=== PATIENT | male | born 1935 | race Caucasian/White ===

== ENCOUNTER 2016-11-24 06:03 | Observation (INO) | payer MEDICARE, BC ==
[2016-11-24] VITALS (9 sets, daily range): BP systolic 107–154; BP diastolic 47–65; PULSE 60–66; RESP 17–20; TEMP 97.6–98.2; O2SAT 93–98
[~2016-11-24] VITALS: Ht 170.2 cm; Wt 100.0 kg
[~2016-11-24 06:03] MED LIST: CHOL1CAP2 PO; ECOT81TA2 PO; EZET10 PO; FURO1TAB93 PO; GABA300 PO; GLUCTAB PO; KCL10 PO; LISI20 PO; LORTA5 PO; METO50TA PO; NITR.4; RANO500 PO; ROSU40 PO; STAR60TA PO
[2016-11-24] MEDS ORDERED: CLOP75TA PO (06:25)
[2016-11-24] MEDS ORDERED: ISOS30TA3 PO (06:25)
[2016-11-24] MEDS ORDERED: NITR1SUB3 SL (06:25)
[2016-11-24] MEDS ORDERED: ASPI1TAB69 PO (06:25)
[2016-11-24] MEDS ORDERED: GABA300C5 PO (06:25)
[2016-11-24] MEDS ORDERED: POTA10TA2 PO (06:25)
[2016-11-24] MEDS ORDERED: METF850T PO (06:25)
[2016-11-24] MEDS ORDERED: TRAZ50TA12 PO (06:25)
[2016-11-24] MEDS ORDERED: METO50TA PO (06:25)
[2016-11-24] MEDS ORDERED: MULT-120 PO (06:25)
[2016-11-24] MEDS ORDERED: FURO40TA PO (06:25)
[2016-11-24] MEDS ORDERED: ATOR40TA16 PO (06:25)
[2016-11-24] MEDS ORDERED: LISI-515 PO (06:25)
[2016-11-24] MEDS ORDERED: NATE120T PO (06:25)
[2016-11-24] MEDS ORDERED: ZETI10TA5 PO (06:25)
[2016-11-24] MEDS ORDERED: SODIUM CHLOR 0.9% 1000 ML INJ 1,000 ML IV ONE (07:01)
--- NOTE | 2016-11-24 07:07 | PD ---
HPI Chief Complaint: Syncope/Near-Syncope Time Seen by Provider: 06:54 Travel History International Travel<30 days: No Contact w/Intl Traveler<30days: No Traveled to known affect area: No History of Present Illness HPI The patient is a 80-year-old male who presents to the emergency Department after syncopal episode. The patient notes a three-day history of diarrhea which she describes as loose, watery, with intermittent abdominal pain. The patient states he was sitting on a toilet when he had a syncopal episode. The patient states he had no symptoms prior to syncope, denied any chest pain, shortness breath, nausea, vomiting, diaphoresis, or dizziness prior to the syncopal episode. The patient states he apparently passed out and awakened on the floor. The patient was noted to have a laceration to the bridge of the nose as well as a laceration to the right forehead. Patient currently complains of intermittent abdominal cramping. 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 Patient states his primary physician is Dr. Carrero. The patient denies any history of previous syncope. Symptoms are moderate, possibly exacerbated by recent diarrhea and using the bathroom, apparently self alleviating. PFSH Past Medical History Anxiety: No Depression: No Heart Rhythm Problems: Yes (PALPITATIONS ) Cancer: No Cardiac Catheterization: Yes (06/2015) Cardiovascular Problems: Yes (nstemi) High Cholesterol: Yes Chest Pain: Yes Congestive Heart Failure: No Diabetes: Yes Patient Takes Glucophage: Yes Endocrine: Yes Gastrointestinal Disorders: Yes Glaucoma: No Genitourinary: No Hepatitis: No Hiatal Hernia: No Hypertension: Yes Immune Disorder: No Implanted Vascular Access Dvce: Yes Musculoskeletal: Yes (BACK/ NECK ISSUES, ARTHTITIS, L KNEE REPLACEMENT ) Neurologic: Yes (NEUROPATHY FINGERS/ FEET, STROKE) Psychiatric: No Reproductive: No Respiratory: Yes (COPD) Immunizations Current: Yes Sleep Apnea: Yes Thyroid Disease: No Tetanus Vaccination: Unknown Influenza Vaccination: Yes Past Surgical History Abdominal Surgery: Yes (UMBILICAL HERNIA REPAIR 20 YRS AGO) AICD: No Body Medical Devices: STERNAL WIRES Cardiac Surgery: Yes (CABG X3) Ear Surgery: No Endocrine Surgery: No Eye Surgery: Yes (GURDEEP. CATARACT EXTRACT.) Genitourinary Surgery: No Gynecologic Surgery: No Joint Replacement: Yes (LTK ) Neurologic Surgery: No Oral Surgery: Yes (TONSILLECTOMY) Pacemaker: No Thoracic Surgery: Yes Other Surgery: Yes Social History Alcohol Use: Yes (couple beers ) Tobacco Use: No (STOPPED 1972) Substance Use: No Allergies-Medications (Allergen,Severity, Reaction): Coded Allergies: Heparin (Verified Allergy, Severe, LOST BLOOD CELL NEARLY , 11/24/16) Versed (Verified Allergy, Intermediate, UNKNOWN, 11/24/16) Reported Meds & Prescriptions Reported Meds & Active Scripts Active Reported Zetia (Ezetimibe) 10 Mg Tab 10 Mg PO DAILY Trazodone (Trazodone HCl) 50 Mg Tab 50 Mg PO HS Potassium Chloride ER (Potassium Chloride) 10 Meq Tab 10 Meq PO DAILY Nitroglycerin SL (Nitroglycerin) 0.4 Mg Subl 0.4 Mg SL DIRECTED PRN ONE TABLET UNDER THE TONGUE NEEDED FOR CHEST PAIN, MAY REPEAT EVERY FIVE MINUTES FOR A TOTAL OF 3 DOSES OR CALL 911 IF NO RELIEF Nateglinide 120 Mg Tab 120 Mg PO TIDAC Metoprolol Tartrate 50 Mg Tab 50 Mg PO BID Metformin (Metformin HCl) 850 Mg Tab 850 Mg PO BIDPC With meals Lisinopril 20 Mg Tab 20 Mg PO DAILY Isosorbide Mononitrate ER (Isosorbide Mononitrate) 30 Mg René 30 Mg PO DAILY Gabapentin 300 Mg Cap 300 Mg PO BID Furosemide 40 Mg Tab 40 Mg PO DAILY Clopidogrel (Clopidogrel Bisulfate) 75 Mg Tab 75 Mg PO DAILY Atorvastatin (Atorvastatin Calcium) 40 Mg Tab 40 Mg PO HS Aspirin 81 Mg Tabdr 81 Mg PO DAILY Multivitamin Women (Multiple Vitamins W/ Minerals) 1 Tab Tab 1 Tab PO DAILY Review of Systems Except as stated in HPI: all other systems reviewed are Neg Eyes: No: Blurred Vision HENT: Positive: Headaches, No: Neck Pain Cardiovascular: Positive: Syncope, No: Chest Pain or Discomfort, Palpitations , Irregular Rhythm, Diaphoresis Respiratory: No: Shortness of Breath Gastrointestinal: Positive: Diarrhea, Abdominal Pain, No: Nausea, Vomiting Musculoskeletal: No: Weakness Neurologic: Positive: Syncope, Headache, No: Dizziness Physical Exam Narrative GENERAL: Awake, alert, pleasant 80-year-old male appears his stated age and is in no acute respiratory distress. SKIN: Warm and dry. HEAD: Patient is a 6 and a laceration to right frontal forehead. Patient also has a superficial laceration to the bridge of the nose. Edema noted over the nasal bridge as well as ecchymosis under the right orbit.. EYES: Pupils equal and round. Pupils are 2 mm bilateral reactive. EOMs are intact. ENT: Superficial laceration of the bridge of nose. No visible septal hematoma. Oropharynx reveals no visible blood in the posterior oropharynx. NECK: Trachea midline. No JVD. No tenderness of the cervical vertebrae. CARDIOVASCULAR: Regular rate and rhythm. No murmur appreciated. Well-healed midline surgical scar. RESPIRATORY: No accessory muscle use. Clear to auscultation. Breath sounds equal bilaterally. GASTROINTESTINAL: Abdomen soft, mild periumbilical tenderness. MUSCULOSKELETAL: Chronic venous stasis changes lower extremities. NEUROLOGICAL: Awake and alert. No obvious cranial nerve deficits. Motor grossly within normal limits. Normal speech. Oriented to person, place, and year. PSYCHIATRIC: Appropriate mood and affect; insight and judgment normal. Data Data Last Documented VS Vital Signs Date Time Temp Pulse Resp B/P Pulse Ox O2 Delivery O2 Flow Rate FiO2 11/24/16 08:30 66 17 130/64 97 Room Air 11/24/16 06:09 97.6 Orders Electrocardiogram (11/24/16 07:01) Complete Blood Count With Diff (11/24/16 07:01) Comprehensive Metabolic Panel (11/24/16 07:01) Magnesium (Mg) (11/24/16 07:01) Ckmb (Isoenzyme) Profile (11/24/16 07:01) Troponin I (11/24/16 07:01) Chest, Single Ap (11/24/16 07:01) Ct Brain W/O Iv Contrast(Rout) (11/24/16 07:01) Ecg Monitoring (11/24/16 07:01) Iv Access Insert/Monitor (11/24/16 07:01) Oximetry (11/24/16 07:01) Sodium Chloride 0.9% Flush (Ns Flush) (11/24/16 07:15) Sodium Chlor 0.9% 1000 Ml Inj (Ns 1000 M (11/24/16 07:01) Orthostatic Vital Signs (11/24/16 07:01) Ct Facial Bones W/O Iv Cont (11/24/16 ) Ct Abd/Pel W/O Iv Contrast (11/24/16 ) Tetanus/Diphtheria Tox Adult (Tetanus/Di (11/24/16 07:15) C Diff Toxin Pcr (11/24/16 08:07) Metronidazole 500 Mg Inj (Flagyl 500 Mg (11/24/16 08:15) Lidocai-Epi 1%-1:100,000 Inj (Xylocaine- (11/24/16 08:30) Admit Order (Ed Use Only) (11/24/16 08:30) Labs Laboratory Tests Test 11/24/16 07:00 White Blood Count 13.1 TH/MM3 Red Blood Count 4.36 MIL/MM3 Hemoglobin 13.0 GM/DL Hematocrit 39.0 % Mean Corpuscular Volume 89.6 FL Mean Corpuscular Hemoglobin 29.8 PG Mean Corpuscular Hemoglobin 33.2 % Concent Red Cell Distribution Width 15.4 % Platelet Count 215 TH/MM3 Mean Platelet Volume 9.9 FL Neutrophils (%) (Auto) 80.2 % Lymphocytes (%) (Auto) 10.0 % Monocytes (%) (Auto) 5.7 % Eosinophils (%) (Auto) 3.7 % Basophils (%) (Auto) 0.4 % Neutrophils # (Auto) 10.5 TH/MM3 Lymphocytes # (Auto) 1.3 TH/MM3 Monocytes # (Auto) 0.8 TH/MM3 Eosinophils # (Auto) 0.5 TH/MM3 Basophils # (Auto) 0.1 TH/MM3 CBC Comment DIFF FINAL Differential Comment Sodium Level 137 MEQ/L Potassium Level 5.1 MEQ/L Chloride Level 105 MEQ/L Carbon Dioxide Level 19.7 MEQ/L Anion Gap 12 MEQ/L Blood Urea Nitrogen 28 MG/DL Creatinine 1.48 MG/DL Estimat Glomerular Filtration 46 ML/MIN Rate Random Glucose 201 MG/DL Calcium Level 9.3 MG/DL Magnesium Level 1.5 MG/DL Total Bilirubin 0.4 MG/DL Aspartate Amino Transf 20 U/L (AST/SGOT) Alanine Aminotransferase 18 U/L (ALT/SGPT) Alkaline Phosphatase 92 U/L Total Creatine Kinase 83 U/L Troponin I LESS THAN 0.02 NG/ML Total Protein 8.0 GM/DL Albumin 3.5 GM/DL MDM Medical Decision Making Medical Screen Exam Complete: Yes Emergency Medical Condition: Yes Medical Record Reviewed: Yes Interpretation(s) EKG reveals normal sinus rhythm with a rate of 65. Q waves noted in lead 3 and aVF. Inverted T waves noted in lead 1 and aVL. Laboratory Tests Test 11/24/16 07:00 White Blood Count 13.1 TH/MM3 Red Blood Count 4.36 MIL/MM3 Hemoglobin 13.0 GM/DL Hematocrit 39.0 % Mean Corpuscular Volume 89.6 FL Mean Corpuscular Hemoglobin 29.8 PG Mean Corpuscular Hemoglobin 33.2 % Concent Red Cell Distribution Width 15.4 % Platelet Count 215 TH/MM3 Mean Platelet Volume 9.9 FL Neutrophils (%) (Auto) 80.2 % Lymphocytes (%) (Auto) 10.0 % Monocytes (%) (Auto) 5.7 % Eosinophils (%) (Auto) 3.7 % Basophils (%) (Auto) 0.4 % Neutrophils # (Auto) 10.5 TH/MM3 Lymphocytes # (Auto) 1.3 TH/MM3 Monocytes # (Auto) 0.8 TH/MM3 Eosinophils # (Auto) 0.5 TH/MM3 Basophils # (Auto) 0.1 TH/MM3 CBC Comment DIFF FINAL Differential Comment Sodium Level 137 MEQ/L Potassium Level 5.1 MEQ/L Chloride Level 105 MEQ/L Carbon Dioxide Level 19.7 MEQ/L Anion Gap 12 MEQ/L Blood Urea Nitrogen 28 MG/DL Creatinine 1.48 MG/DL Estimat Glomerular Filtration 46 ML/MIN Rate Random Glucose 201 MG/DL Calcium Level 9.3 MG/DL Magnesium Level 1.5 MG/DL Total Bilirubin 0.4 MG/DL Aspartate Amino Transf 20 U/L (AST/SGOT) Alanine Aminotransferase 18 U/L (ALT/SGPT) Alkaline Phosphatase 92 U/L Total Creatine Kinase 83 U/L Troponin I LESS THAN 0.02 NG/ML Total Protein 8.0 GM/DL Albumin 3.5 GM/DL Last Impressions Head CT 11/24/16700 Signed Impressions: Service Date/Time: Thursday, November 24, 2016 07:32 - CONCLUSION: Remote bilateral thalamic infarcts. Cerebral atrophy and chronic ischemic small vessel vasculopathy. Right frontal laceration. Taurus Sandy MD Chest X-Ray 11/24/16700 Signed Impressions: Service Date/Time: Thursday, November 24, 2016 07:13 - CONCLUSION: Cardiomegaly previous CABG. Taruus Sandy MD Maxillofacial CT 11/24/16 0000 Signed Impressions: Service Date/Time: Thursday, November 24, 2016 07:32 - CONCLUSION: 1. Minimal fracture of the right nasal bone. 2. Periorbital and right facial swelling. Taurus Sandy MD Abdomen/Pelvis CT 11/24/16 0000 Signed Impressions: Service Date/Time: Thursday, November 24, 2016 07:37 - CONCLUSION: 1. Diverticulosis without diverticulitis. 2. Wall thickening versus nondistention of the mid transverse colon. No inflammatory changes. 3. Subcentimeter hepatic low densities, likely benign. Taurus Sandy MD Differential Diagnosis Differential diagnosis includes syncope, arrhythmia, vasovagal syncope, dehydration, colitis, infectious diarrhea, inflammatory diarrhea, leg slight abnormality, aortic stenosis, cranial hemorrhage, facial fracture. Narrative Course IV was established, labs are drawn and sent, and the patient was placed on cardiac telemetry monitoring and continuous pulse oximetry monitoring. EKG was ordered and interpreted. Orthostatic vital signs were obtained. CT the brain, facial bones, and abdomen/pelvis were ordered. The patient was placed on IV fluids. EKG revealed Q waves in lead 3 and aVF, inverted T waves in [address] the brain was negative, CT facial bones reveals nasal fracture, CT the abdomen and pelvis reveals possible bowel wall thickening of the transverse colon versus nondistention. Therefore, C. difficile PCR toxin was ordered and the patient was administered Flagyl 500 mg intravenously. The patient had a syncopal episode, may be vasovagal secondary to diarrhea versus arrhythmia. Patient will need judicious IV hydration, Flagyl, and possible echocardiogram. The patient's primary physician is Dr. Preston Harris, therefore, [facility] were paged for 23 hour observation. Physician Communication Physician Communication [facility] were paged for 23 hour observation. I discussed the patient with Dr. Hanson who agrees with 23 hour observation. Diagnosis Primary Impression: Syncope Qualified Code: R55 - Syncope, unspecified syncope type Additional Impressions: Diarrhea Qualified Code: R19.7 - Diarrhea, unspecified type Colitis Admitting Information Admitting Physician Requests: Observation Condition: Stable Kofi Dong MD Nov 24, 2016 07:07 Condition: Stable Kofi Dong MD Nov 24, 2016 07:07
[2016-11-24] MEDS ORDERED: TETANUS/DIPHTHERIA TOXOID ADULT 0.5 ML VIAL IM ONE (07:15)
[2016-11-24] MEDS ORDERED: SODIUM CHLORIDE 0.9% FLUSH 5 ML FLUSH IVF PRN (07:15)
[2016-11-24 07:19] LABS: AUTOMATED NEUTROPHIL # 10.5 TH/MM3 (1.8-7.7); BASOPHIL # 0.1 TH/MM3 (0-0.2); BASOPHIL % 0.4 % (0.0-2.0); EOSINOPHIL # 0.5 TH/MM3 (0-0.4); EOSINOPHIL % 3.7 % (0.0-4.0); HEMO FLAGS DIFF FINAL; LYMPHOCYTE # 1.3 TH/MM3 (1.0-4.8); MEAN CELL VOLUME 89.6 FL (80.0-100.0); MEAN CORPUSCULAR HEMOGLOBIN 29.8 PG (27.0-34.0); MEAN CORPUSCULAR HGB CONC 33.2 % (32.0-36.0); MONO % 5.7 % (0.0-8.0); NEUT % 80.2 % (16.0-70.0); PLATELET COUNT 215 TH/MM3 (150-450); RED BLOOD COUNT 4.36 MIL/MM3 (4.50-5.90); RED CELL DISTRIBUTION WIDTH 15.4 % (11.6-17.2); WHITE BLOOD COUNT 13.1 TH/MM3 (4.0-11.0)
--- NOTE | 2016-11-24 07:24 | RADRPT ---
EXAM DATE/TIME: 11/24/2016 07:13 [facility] COMPARISON: CHEST SINGLE AP, July 13, 2015, 14:10. INDICATIONS : Fall from seated position. MEDICAL HISTORY : None. SURGICAL HISTORY : CABG. ENCOUNTER: Initial ACUITY: 1 day PAIN SCORE: 5/10 LOCATION: head. FINDINGS: A single view of the chest demonstrates cardiomegaly and previous CABG. The cardiomediastinal contour s are unremarkable. Osseous structures are intact. CONCLUSION: Cardiomegaly previous CABG. Taurus Sandy MD on November 24, 2016 at 7:22 Board Certified Radiologist. This report was verified electronically.
--- NOTE | 2016-11-24 07:42 | RADRPT ---
EXAM DATE/TIME: 11/24/2016 07:32 [facility] COMPARISON: CT BRAIN W/O CONTRAST, June 10, 2015, 23:21. INDICATIONS : Syncopal episode with fall, right forehead laceration. RADIATION DOSE: 54.40 CTDIvol (mGy) MEDICAL HISTORY : Cardiovascular disease. Chronic obstructive pulmonary disease. Diabetes mellitus type 2. SURGICAL HISTORY : CABG Umbilical hernia repair. ENCOUNTER: Initial ACUITY: 1 day PAIN SCALE: 6/10 LOCATION: Right frontal TECHNIQUE: Multiple contiguous axial images were obtained of the head. Using automated exposure control and adj ustment of the mA and/or kV according to patient size, radiation dose was kept as low as reasonably a chievable to obtain optimal diagnostic quality images. FINDINGS: CEREBRUM: Cerebral atrophy and scattered areas of low-attenuation throughout the white matter. Old bilateral ba evelyn ganglia/thalamic infarcts. Basal ganglia calcifications. The ventricles are normal for age. No e vidence of midline shift, mass lesion, hemorrhage or acute infarction. No extra-axial fluid collecti ons are seen. POSTERIOR FOSSA: The cerebellum and brainstem are intact. The 4th ventricle is midline. The cerebellopontine angle i s unremarkable. EXTRACRANIAL: The visualized portion of the orbits is intact. Right frontal soft tissue laceration. SKULL: The calvaria is intact. No evidence of skull fracture. CONCLUSION: Remote bilateral thalamic infarcts. Cerebral atrophy and chronic ischemic small vessel vasculopathy. Right frontal laceration. Taurus Sandy MD on November 24, 2016 at 7:38 Board Certified Radiologist. This report was verified electronically.
[2016-11-24 07:47] LABS: ALKALINE PHOSPHATASE 92 U/L (45-117); ALT (GPT) 18 U/L (12-78); ANION GAP 12 MEQ/L (5-15); AST (GOT) 20 U/L (15-37); BICARBONATE 19.7 MEQ/L (21.0-32.0); BLOOD UREA NITROGEN 28 MG/DL (7-18); CHLORIDE 105 MEQ/L (98-107); GLOMERULAR FILTRATION RATE 46 ML/MIN (>89); MAGNESIUM 1.5 MG/DL (1.5-2.5); SODIUM (NA) 137 MEQ/L (136-145); TOTAL BILIRUBIN ADULT 0.4 MG/DL (0.2-1.0)
[2016-11-24 07:48] LABS: CREATINE KINASE 83 U/L (39-308); POTASSIUM 5.1 MEQ/L (3.5-5.1)
--- NOTE | 2016-11-24 07:53 | RADRPT ---
EXAM DATE/TIME: 11/24/2016 07:32 [facility] COMPARISON: No previous studies available for comparison. INDICATIONS : Fall, right forehead and nose lacerations. RADIATION DOSE: 64.36 CTDIvol (mGy) MEDICAL HISTORY : Cardiovascular disease. Chronic obstructive pulmonary disease. Diabetes mellitus type 2. SURGICAL HISTORY : CABG Umbilical hernia repair. ENCOUNTER: Initial ACUITY: 1 day PAIN SCORE: 6/10 LOCATION: Right facial TECHNIQUE: Volumetric scanning of the facial bones was performed. Using automated exposure control and adjustme nt of the mA and/or kV according to patient size, radiation dose was kept as low as reasonably achiev able to obtain optimal diagnostic quality images. FINDINGS: ORBITS: The orbital and infraorbital osseous structures are intact. The retroconal structures have a normal configuration. No radiopaque foreign bodies are seen. NASAL BONE: Minimal fracture right nasal bone ZYGOMATIC ARCHES: Symmetric without evidence of fracture. SINUSES: The maxillary, ethmoid and frontal sinuses are intact. No air-fluid levels seen. NASAL CAVITY: The nasal septum is intact and midline. The lacrimal ducts are intact. SOFT TISSUES: No radiopaque foreign bodies seen. Right-sided soft-tissue/periorbital swelling is seen. Right fronta l soft tissue laceration. INTRACRANIAL: No intracranial air seen. CRIBIFORM PLATE: Grossly intact. CONCLUSION: 1. Minimal fracture of the right nasal bone. 2. Periorbital and right facial swelling. Taurus Sandy MD on November 24, 2016 at 7:48 Board Certified Radiologist. This report was verified electronically.
--- NOTE | 2016-11-24 07:57 | RADRPT ---
EXAM DATE/TIME: 11/24/2016 07:37 [facility] COMPARISON: No previous studies available for comparison. INDICATIONS : Diarrhea and abdominal cramping for three days. ORAL CONTRAST: No oral contrast ingested. RADIATION DOSE: 15.83 CTDIvol (mGy) MEDICAL HISTORY : Cardiovascular disease. Chronic obstructive pulmonary disease. Diabetes mellitus type 2. SURGICAL HISTORY : Umbilical hernia repair. CABG ENCOUNTER: Initial ACUITY: 3 days PAIN SCALE: 3/10 LOCATION: Bilateral lower quadrant TECHNIQUE: Volumetric scanning of the abdomen and pelvis was performed. Using automated exposure control and ad justment of the mA and/or kV according to patient size, radiation dose was kept as low as reasonably achievable to obtain optimal diagnostic quality images. FINDINGS: LOWER LUNGS: The visualized lower lungs are clear. LIVER: Homogeneous density without lesion. There is no dilation of the biliary tree. No calcified gallston es. 2 sub-centimeters low densities are seen SPLEEN: Normal size without lesion. PANCREAS: Within normal limits. KIDNEYS: Normal in size and shape. There is no mass, stone, or hydronephrosis. ADRENAL GLANDS: Within normal limits. VASCULAR: There is no aortic aneurysm. BOWEL/MESENTERY: There is extensive diverticulosis of the descending and sigmoid colon. No definite diverticulitis. Th ere is wall thickening versus nondistention of the transverse colon.. There is no free intraperitone al air or fluid. ABDOMINAL WALL: Within normal limits. RETROPERITONEUM: There is no lymphadenopathy. BLADDER: No wall thickening or mass. REPRODUCTIVE: Within normal limits. INGUINAL: There is no lymphadenopathy or hernia. MUSCULOSKELETAL: Within normal limits for patient age. CONCLUSION: 1. Diverticulosis without diverticulitis. 2. Wall thickening versus nondistention of the mid transverse colon. No inflammatory changes. 3. Subcentimeter hepatic low densities, likely benign. Taurus Sandy MD on November 24, 2016 at 7:51 Board Certified Radiologist. This report was verified electronically.
[2016-11-24] MEDS ORDERED: metroNIDAZOLE 500 MG INJ 100 ML IV ONE (08:15)
[2016-11-24] MEDS ORDERED: LIDOCAINE 1%/EPINEPHrine 1:100,000 SOLN 20 ML VIAL INFIL ONE (08:30)
[2016-11-24] MEDS ORDERED: DEXTROSE 50% IN WATER 50 ML VIAL(D50) IV PUSH PRN (08:45)
[2016-11-24] MEDS ORDERED: NITROGLYCERIN 0.4 MG SL 25 TABS/BTL SL PRN (08:45)
[2016-11-24] MEDS ORDERED: SODIUM CHLORIDE 0.9% FLUSH 5 ML FLUSH FLUSH PRN (08:45)
[2016-11-24] MEDS ORDERED: ACETAMINOPHEN 325 MG TAB PO PRN (08:45)
[2016-11-24] MEDS ORDERED: GLUCAGON 1 MG/ML VIAL OTHER PRN (08:45)
[2016-11-24] MEDS ORDERED: NALOXONE HCL 0.4 MG/ML AMP IV PRN (08:45)
[2016-11-24] MEDS ORDERED: ONDANSETRON HCL 4 MG/2 ML VIAL IVP PRN (08:45)
--- NOTE | 2016-11-24 08:59 | PD ---
Physical Exam Time Seen by Provider: 08:57 Narrative I was asked by Dr. Dong to perform a laceration repair. For further details regarding the patient's visit please see the physician's documentation. Data Data Last Documented VS Vital Signs Date Time Temp Pulse Resp B/P Pulse Ox O2 Delivery O2 Flow Rate FiO2 11/24/16 08:30 66 17 130/64 97 Room Air 11/24/16 06:09 97.6 Orders Electrocardiogram (11/24/16 07:01) Complete Blood Count With Diff (11/24/16 07:01) Comprehensive Metabolic Panel (11/24/16 07:01) Magnesium (Mg) (11/24/16 07:01) Ckmb (Isoenzyme) Profile (11/24/16 07:01) Troponin I (11/24/16 07:01) Chest, Single Ap (11/24/16 07:01) Ct Brain W/O Iv Contrast(Rout) (11/24/16 07:01) Ecg Monitoring (11/24/16 07:01) Iv Access Insert/Monitor (11/24/16 07:01) Oximetry (11/24/16 07:01) Sodium Chloride 0.9% Flush (Ns Flush) (11/24/16 07:15) Sodium Chlor 0.9% 1000 Ml Inj (Ns 1000 M (11/24/16 07:01) Orthostatic Vital Signs (11/24/16 07:01) Ct Facial Bones W/O Iv Cont (11/24/16 ) Ct Abd/Pel W/O Iv Contrast (11/24/16 ) Tetanus/Diphtheria Tox Adult (Tetanus/Di (11/24/16 07:15) C Diff Toxin Pcr (11/24/16 08:07) Metronidazole 500 Mg Inj (Flagyl 500 Mg (11/24/16 08:15) Lidocai-Epi 1%-1:100,000 Inj (Xylocaine- (11/24/16 08:30) Admit Order (Ed Use Only) (11/24/16 08:30) Labs Laboratory Tests Test 11/24/16 07:00 White Blood Count 13.1 TH/MM3 Red Blood Count 4.36 MIL/MM3 Hemoglobin 13.0 GM/DL Hematocrit 39.0 % Mean Corpuscular Volume 89.6 FL Mean Corpuscular Hemoglobin 29.8 PG Mean Corpuscular Hemoglobin 33.2 % Concent Red Cell Distribution Width 15.4 % Platelet Count 215 TH/MM3 Mean Platelet Volume 9.9 FL Neutrophils (%) (Auto) 80.2 % Lymphocytes (%) (Auto) 10.0 % Monocytes (%) (Auto) 5.7 % Eosinophils (%) (Auto) 3.7 % Basophils (%) (Auto) 0.4 % Neutrophils # (Auto) 10.5 TH/MM3 Lymphocytes # (Auto) 1.3 TH/MM3 Monocytes # (Auto) 0.8 TH/MM3 Eosinophils # (Auto) 0.5 TH/MM3 Basophils # (Auto) 0.1 TH/MM3 CBC Comment DIFF FINAL Differential Comment Sodium Level 137 MEQ/L Potassium Level 5.1 MEQ/L Chloride Level 105 MEQ/L Carbon Dioxide Level 19.7 MEQ/L Anion Gap 12 MEQ/L Blood Urea Nitrogen 28 MG/DL Creatinine 1.48 MG/DL Estimat Glomerular Filtration 46 ML/MIN Rate Random Glucose 201 MG/DL Calcium Level 9.3 MG/DL Magnesium Level 1.5 MG/DL Total Bilirubin 0.4 MG/DL Aspartate Amino Transf 20 U/L (AST/SGOT) Alanine Aminotransferase 18 U/L (ALT/SGPT) Alkaline Phosphatase 92 U/L Total Creatine Kinase 83 U/L Troponin I LESS THAN 0.02 NG/ML Total Protein 8.0 GM/DL Albumin 3.5 GM/DL MDM Supervised Visit with DIANN: No Procedures Procedure Narrative LACERATION LOCATION: Forehead LENGTH: 3 cm NUMBER OF STITCHES/CASSY: 6 sutures REPAIR: The area of the laceration was prepped with Betadine and sterilely draped. The laceration was infiltrated with 1% lidocaine with epinephrine. The wound was copiously irrigated and explored without evidence of foreign body , tendon injury or neurovascular injury. The wound was closed using 5. 0 Ethilon. This was a single layer repair. Antibiotic ointment and a sterile dressing was applied. The patient was advised to keep the dressing clean and dry. Patient tolerated the procedure well. LACERATION LOCATION: Bridge of nose LENGTH: 1 cm NUMBER OF STITCHES/CASSY: 2 sutures REPAIR: The area of the laceration was prepped with Betadine and sterilely draped. The laceration was infiltrated with 1% lidocaine with epinephrine. The wound was copiously irrigated and explored without evidence of foreign body , tendon injury or neurovascular injury. The wound was closed using 6. 0 Ethilon. This was a single layer repair. Antibiotic ointment and a sterile dressing was applied. The patient was advised to keep the dressing clean and dry. Patient tolerated the procedure well. Diagnosis Primary Impression: Syncope Qualified Code: R55 - Syncope, unspecified syncope type Additional Impressions: Colitis Diarrhea Qualified Code: R19.7 - Diarrhea, unspecified type Condition: Stable Analy Ojeda Nov 24, 2016 08:59
[2016-11-24] MEDS ORDERED: METOPROLOL TARTRATE 50 MG TAB PO SCH (09:00)
[2016-11-24] MEDS: SODIUM CHLORIDE 0.9% FLUSH 5 ML FLUSH FLUSH SCH ×2 (09:00→20:44)
[2016-11-24] MEDS: SODIUM CHLOR 0.9% 1000 ML INJ 1,000 ML IV SCH ×2 (09:22→20:44)
[2016-11-24] MEDS: CLOPIDOGREL 75 MG TAB PO SCH (09:23)
[2016-11-24] MEDS: GABAPENTIN 300 MG CAP PO SCH ×2 (09:23→20:41)
[2016-11-24] MEDS: POTASSIUM CHLORIDE 10 MEQ CONTROLLED RELEASE TAB PO SCH (09:23)
[2016-11-24] MEDS: EZETIMIBE 10 MG TAB PO SCH (09:23)
[2016-11-24] MEDS: ISOSORBIDE MONONITRATE 30 MG TAB PO SCH (09:23)
[2016-11-24] MEDS: ASPIRIN EC 81 MG TABEC PO SCH (09:23)
[2016-11-24] MEDS: MULTIVITAMINS/MINERALS THERAPEUTIC TAB PO SCH (09:27)
[2016-11-24] MEDS: INSULIN ASPART SUPPLEMENTAL SCALE SQ SCH ×3 (11:00→20:44)
[2016-11-24] MEDS ORDERED: NATEGLINIDE 120 MG PO SCH (12:00)
[2016-11-24] MEDS ORDERED: NON-FORMULARY DRUG (Nateglinide 120 MG) PO SCH (12:00)
--- NOTE | 2016-11-24 14:48 | HHI.HP ---
HPI Service [facility] Primary Care Physician Preston Harris M.D. Admission Diagnosis syncope, diarrhea, colitis Diagnoses: (Franchesca Yost) Travel History International Travel<30 Days: No Contact w/Intl Traveler <30 Da: No Traveled to Known Affected Are: No (Franchesca Yost) History of Present Illness This a pleasant 80-year-old male with significant past medical history of CAD, non-STEMI, PVD, type 2 diabetes, hypertension. Patient was sent from care home after he had a syncopal episode. According to patient and information obtained from care home, patient has been having 3 days of watery diarrhea, nonbloody associated with intermittent epigastric discomfort, has had some nausea. Did have one episode of vomiting after he ate in the emergency room. Patient was sitting on the toilet when he had a syncopal episode hitting his head on the sink. He awoke on the floor and was able to get up. He has a laceration to the bridge of the nose as well as one to the right eyebrow. Denies any recent outside travel, no antibiotics, no other sick relatives. Patient resides at a care home. Indicates he was hospitalized 6 weeks ago for some type of vascular procedure to the legs, he is not sure if it was here or at another facility. There is no recent hospitalization here. The last time he was here was in 2014. Patient denies any other symptoms such as chest pain, no shortness of breath, no cough, no sputum production. Denies any fever or chills. Denies any palpitations, no feelings of lightheadedness prior to episode. His rug cleaner is Dr. Gloria. Patient was evaluated in the emergency room, he was noted with low blood pressure 113/56, heart rate 66, temperature 97.6. He was noted dehydrated, B1 28, creatinine 1.48. Blood glucose was 201. CO2 was 19.7. WBC was mildly elevated, 13.1. Stool for C. difficile currently pending. Patient had sutures to right eyebrow and in nasal bridge laceration. Imaging studies were completed, Last Impressions Head CT 11/24/16 0701 Signed Impressions: Service Date/Time: Thursday, November 24, 2016 07:32 - CONCLUSION: Remote bilateral thalamic infarcts. Cerebral atrophy and chronic ischemic small vessel vasculopathy. Right frontal laceration. Taurus F. Tocci, MD Chest X-Ray 11/24/16 0701 Signed Impressions: Service Date/Time: Thursday, November 24, 2016 07:13 - CONCLUSION: Cardiomegaly previous CABG. Taurus Sandy MD Maxillofacial CT 11/24/16 0000 Signed Impressions: Service Date/Time: Thursday, November 24, 2016 07:32 - CONCLUSION: 1. Minimal fracture of the right nasal bone. 2. Periorbital and right facial swelling. Taurus Sandy MD Abdomen/Pelvis CT 11/24/16 0000 Signed Impressions: Service Date/Time: Thursday, November 24, 2016 07:37 - CONCLUSION: 1. Diverticulosis without diverticulitis. 2. Wall thickening versus nondistention of the mid transverse colon. No inflammatory changes. 3. Subcentimeter hepatic low densities, likely benign. Taurus Sandy MD CT of the abdomen concerning for possible colitis, patient was started on Flagyl and given IV fluids. Patient is examined, he has poor appetite, abdominal discomfort is mild. Patient is admitted for further evaluation and treatment. (Franchesca Yost) Review of Systems ROS Limitations: Poor Historian Cardiovascular: COMPLAINS OF: Syncope Gastrointestinal: COMPLAINS OF: Abdominal pain, Diarrhea, Nausea, Vomiting, Anorexia (Franchesca Yost) Past Family Social History Past Medical History 1. Past medical history of coronary artery disease, status post coronary artery bypass graft x 2 in 1984 and 1997 with complications. 2. 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 3. Peripheral vascular disease. 4. Diabetes. 5. Hypertension. 6. Hyperlipidemia. 7. Chronic kidney disease stage III. 8. Previous non-STEMI. 9. Recent admission May 19, 2015 with non-STEMI. 10. Hyperlipidemia. 11. Obesity. 12. Gastroesophageal reflux disease. 13. Back pain. 14. Chronic neck pain. 15. Left knee replacement. 16. Peripheral neuropathy. 17. Prior strokes. 18. Sleep apnea, he uses C-PAP. 19. Umbilical hernia repair. 20. Bilateral cataracts. 21. Tonsillectomy. 22. Palpitations. 23. Osteoarthritis. 24. Alcohol abuse in the past. 25. Sepsis Reported Medications Reported Meds & Active Scripts Active Reported Zetia (Ezetimibe) 10 Mg Tab 10 Mg PO DAILY Trazodone (Trazodone HCl) 50 Mg Tab 50 Mg PO HS Potassium Chloride ER (Potassium Chloride) 10 Meq Tab 10 Meq PO DAILY Nitroglycerin SL (Nitroglycerin) 0.4 Mg Subl 0.4 Mg SL DIRECTED PRN ONE TABLET UNDER THE TONGUE NEEDED FOR CHEST PAIN, MAY REPEAT EVERY FIVE MINUTES FOR A TOTAL OF 3 DOSES OR CALL 911 IF NO RELIEF Nateglinide 120 Mg Tab 120 Mg PO TIDAC Metoprolol Tartrate 50 Mg Tab 50 Mg PO BID Metformin (Metformin HCl) 850 Mg Tab 850 Mg PO BIDPC With meals Lisinopril 20 Mg Tab 20 Mg PO DAILY Isosorbide Mononitrate ER (Isosorbide Mononitrate) 30 Mg René 30 Mg PO DAILY Gabapentin 300 Mg Cap 300 Mg PO BID Furosemide 40 Mg Tab 40 Mg PO DAILY Clopidogrel (Clopidogrel Bisulfate) 75 Mg Tab 75 Mg PO DAILY Atorvastatin (Atorvastatin Calcium) 40 Mg Tab 40 Mg PO HS Aspirin 81 Mg Tabdr 81 Mg PO DAILY Multivitamin Women (Multiple Vitamins W/ Minerals) 1 Tab Tab 1 Tab PO DAILY ( Franchesca Yost) Allergies: Coded Allergies: Heparin (Verified Allergy, Severe, LOST BLOOD CELL NEARLY , 11/24/16) Versed (Verified Allergy, Intermediate, UNKNOWN, 11/24/16) Active Ordered Medications Inpatient Medications Acetaminophen (Tylenol) 650 mg Q4H PRN PO TEMP > 100.4; Start 11/24/16 at 08:45 Aspirin (Ecotrin Ec) 81 mg DAILY PO Last administered on 11/24/16 09:23; Start 11/24/16 at 09:00 Atorvastatin Calcium (Lipitor) 40 mg HS PO ; Start 11/24/16 at 21:00 Clopidogrel Bisulfate (Plavix) 75 mg DAILY PO Last administered on 11/24/16 09 :23; Start 11/24/16 at 09:00 Dextrose (D50w (Vial) Inj) 25 ml UNSCH PRN IV PUSH HYPOGLYCEMIA-SEE COMMENTS; Start 11/24/16 at 08:45 EZETIMIBE (Zetia) 10 mg DAILY PO Last administered on 11/24/16 09:23; Start at 09:00 Gabapentin (Neurontin) 300 mg BID PO Last administered on 11/24/16 09:23; Start 11/24/16 at 09:00 Glucagon (Glucagon Inj) 1 mg UNSCH PRN OTHER HYPOGLYCEMIA-SEE COMMENTS; Start 11/24/16 at 08:45 Insulin Aspart (NovoLOG SUPPLEMENTAL SCALE) 1 ACHS SLIDING SCALE SQ ; Start 08/30 at 11:00 Isosorbide Mononitrate (Imdur) 30 mg DAILY PO Last administered on 11/24/16 09 :23; Start 11/24/16 at 09:00 IV Flush (NS Flush) 2 ml BID FLUSH Last administered on 11/24/16 09:00; Start 11/24/16 at 09:00 Lidocaine/ Epinephrine 10 ml 10 ml ONCE ONCE INFIL Last administered on 08:30; Start 11/24/16 at 08:30; Stop 11/24/16 at 08:31; Status DC Metoprolol Tartrate (Lopressor) 50 mg BID PO Last administered on 11/24/16 09: 23; Start 11/24/16 at 09:00 Metronidazole (Flagyl 500 Mg Inj) 100 ml @ 100 mls/hr Q8H IV Last administered on 11/24/16 15:03; Start 11/24/16 at 14:45 Multivitamins/ Minerals Therapeutic (Theragran M Tab) 1 tab DAILY PO Last administered on 11/24/16 09:27; Start 11/24/16 at 09:00 Naloxone HCl (Narcan Inj) 0.4 mg UNSCH PRN IV SEE LABEL COMMENTS; Start at 08:45 Nitroglycerin (Nitrostat Sl) 0.4 mg 5 TIMES A DAY PRN SL CHEST PAIN; Start 08/30 at 08:45 Ondansetron HCl (Zofran Inj) 4 mg Q6H PRN IVP NAUSEA OR VOMITING Last administered on 11/24/16 09:22; Start 11/24/16 at 08:45 Patient Own Medication PT OWN MED: NATEGLIN... TIDAC PO ; Start 11/24/16 at 12: 00; Status Hold Potassium Chloride (KCl) 10 meq DAILY PO Last administered on 11/24/16 09:23; Start 11/24/16 at 09:00 Sodium Chloride (NS 1000 ml Inj) 1,000 ml @ 70 mls/hr [id number] IV Last administered on 11/24/16 09:22; Start 11/24/16 at 08:37 Tetanus/ Diphtheria Toxoids (Tetanus/ Diphtheria Tox Adult) 0.5 ml ONCE ONCE IM Last administered on 11/24/16 07:10; Start 11/24/16 at 07:15; Stop 11/24/16 at 07:16; Status DC Trazodone HCl (Desyrel) 50 mg HS PO ; Start 11/24/16 at 21:00 Family History Difficult to obtain, poor historian Social History The patient is , lives at home. He is a former smoker. No illicit drug use. Does have a positive history of alcohol abuse, no longer drinks (Franchesca Yost) Physical Exam Vital Signs Vital Signs Date Time Temp Pulse Resp B/P Pulse Ox O2 Delivery O2 Flow Rate FiO2 11/24/16 11:06 60 19 107/49 97 11/24/16 08:30 66 17 130/64 97 Room Air 11/24/16 07:16 18 97 Room Air 11/24/16 07:10 68 17 115/58 67 18 109/54 68 18 154/65 11/24/16 07:10 68 18 97 Room Air 11/24/16 06:25 65 20 113/56 94 Room Air 11/24/16 06:09 97.6 66 20 113/56 95 Physical Exam GENERAL: This is a well-nourished, well-developed patient, in no apparent distress. SKIN: Erythematous rash to groin. Chronic venous discoloration, superficial ulcerations noted to both lower extremities. HEAD: Atraumatic. Normocephalic. No temporal or scalp tenderness. EYES: Pupils equal round and reactive. Extraocular motions intact. No scleral icterus. No injection or drainage. ENT: Nose without bleeding, purulent drainage or septal hematoma. Throat without erythema, tonsillar hypertrophy or exudate. Uvula midline. Airway patent. NECK: Trachea midline. No JVD or lymphadenopathy. Supple, nontender, no meningeal signs. CARDIOVASCULAR: Regular rate and rhythm with soft murmurs, no gallops, no rubs. RESPIRATORY: Breath sounds diminished at bases. GASTROINTESTINAL: Abdomen soft and protuberant, mildly tender epigastric area, nondistended. No hepato-splenomegaly, or palpable masses. No guarding. MUSCULOSKELETAL: Extremities without clubbing, cyanosis. Bilateral lower extremities with trace pretibial edema, chronic venous discoloration. Bilateral pedal pulses 1+. No joint tenderness, effusion, or edema noted. No calf tenderness. Negative Homans sign bilaterally. NEUROLOGICAL: Awake, alert oriented 3. No focal deficit. Poor historian. Laboratory Laboratory Tests Test 11/24/16 07:00 White Blood Count 13.1 Red Blood Count 4.36 Hemoglobin 13.0 Hematocrit 39.0 Mean Corpuscular Volume 89.6 Mean Corpuscular Hemoglobin 29.8 Mean Corpuscular Hemoglobin 33.2 Concent Red Cell Distribution Width 15.4 Platelet Count 215 Mean Platelet Volume 9.9 Neutrophils (%) (Auto) 80.2 Lymphocytes (%) (Auto) 10.0 Monocytes (%) (Auto) 5.7 Eosinophils (%) (Auto) 3.7 Basophils (%) (Auto) 0.4 Neutrophils # (Auto) 10.5 Lymphocytes # (Auto) 1.3 Monocytes # (Auto) 0.8 Eosinophils # (Auto) 0.5 Basophils # (Auto) 0.1 CBC Comment DIFF FINAL Differential Comment Sodium Level 137 Potassium Level 5.1 Chloride Level 105 Carbon Dioxide Level 19.7 Anion Gap 12 Blood Urea Nitrogen 28 Creatinine 1.48 Estimat Glomerular Filtration 46 Rate Random Glucose 201 Calcium Level 9.3 Magnesium Level 1.5 Total Bilirubin 0.4 Aspartate Amino Transf 20 (AST/SGOT) Alanine Aminotransferase 18 (ALT/SGPT) Alkaline Phosphatase 92 Total Creatine Kinase 83 Troponin I LESS THAN 0.02 Total Protein 8.0 Albumin 3.5 (Franchesca Yost) Result Diagram: 11/24/1669911/24/16699 Imaging Last Impressions Head CT 11/24/16700 Signed Impressions: Service Date/Time: Thursday, November 24, 2016 07:32 - CONCLUSION: Remote bilateral thalamic infarcts. Cerebral atrophy and chronic ischemic small vessel vasculopathy. Right frontal laceration. Taurus Sandy MD Chest X-Ray 11/24/16700 Signed Impressions: Service Date/Time: Thursday, November 24, 2016 07:13 - CONCLUSION: Cardiomegaly previous CABG. Taurus Sandy MD Maxillofacial CT 11/24/16 0000 Signed Impressions: Service Date/Time: Thursday, November 24, 2016 07:32 - CONCLUSION: 1. Minimal fracture of the right nasal bone. 2. Periorbital and right facial swelling. Taurus Sandy MD Abdomen/Pelvis CT 11/24/16 0000 Signed Impressions: Service Date/Time: Thursday, November 24, 2016 07:37 - CONCLUSION: 1. Diverticulosis without diverticulitis. 2. Wall thickening versus nondistention of the mid transverse colon. No inflammatory changes. 3. Subcentimeter hepatic low densities, likely benign. Taurus Sandy MD (Franchesca Yost) Assessment and Plan Problem List: (1) Syncope (2) Diarrhea (3) Colitis (4) Dehydration (5) Coronary artery disease (6) Diabetes (7) Acute renal injury (8) PVD (peripheral vascular disease) (9) Laceration of eyebrow, right (10) fracture right nasal bone Assessment and Plan Admit to Dr. Hanson 80-year-old male admitted from care home after syncopal episode. Complains of 3 days of watery diarrhea, intermittent abdominal pain, nausea, vomiting, no fever no chills. CT of the abdomen completed showing diverticulosis without diverticulitis, wall thickening versus nondistention of the mid transverse colon , no inflammatory changes. Admitted with possible colitis, rule out C. difficile Syncope secondary to dehydration, associated with diarrhea. Continue with cautious hydration Continuous cardiac telemetry -Hold blood pressure medications Fracture right nasal bone, periorbital and right facial swelling with laceration to right eyebrow Monitor wound Possible colitis, rule out C. difficile -Continue with cautious hydration Stool pending for C. difficile Continue with Flagyl 500 mg IV every 8 -Monitor electrolytes Acute renal injury secondary to dehydration Continue with IV fluids BMP in the morning Avoid nephrotoxic agents Type 2 diabetes Accu-Cheks before meals and at bedtime with low-dose insulin therapy PVD, chronic venous discoloration and ulceration Continue with leg Oli wraps and wound care Coronary artery disease Continue home meds Avoid anticoagulation, patient has history of HIT Physical therapy for evaluation and treatment Plan of care discussed with the patient, attending and registered nurse. Further management of the patient will be dependent on the hospital course This patient was seen by myself and Dr. Hanson, this H&P is written on his behalf (Franchesca Yost) Assessment and Plan pt seen and examined in ER face to face time spent with pt chart reviewed including labs meds and rad data reinaldo cedeño about plan of care dw rn dw pt (Alexis Hanson MD) Problem Qualifiers (1) Syncope: Qualified Code: R55 - Syncope, unspecified syncope type (2) Diarrhea: Qualified Code: R19.7 - Diarrhea, unspecified type (3) Coronary artery disease: Qualified Code: I25.10 - Coronary artery disease involving [place] coronary artery of [place] heart without angina pectoris (4) Diabetes: Qualified Code: E11.69 - Type 2 diabetes mellitus with other specified complication, unspecified termite treater helper insulin use status (5) Laceration of eyebrow, right: Qualified Code: S01.111A - Laceration of eyebrow, right, initial encounter Franchesca Yost Nov 24, 2016 14:48 Alexis Hanson MD Nov 24, 2016 17:18
[2016-11-24] MEDS: metroNIDAZOLE 500 MG INJ 100 ML IV SCH ×2 (15:03→21:34)
--- NOTE | 2016-11-24 16:39 | EKG ---
Date Performed: 11/24/2016 Time Performed: 07:58:38 PTAGE: 80 years EKG: Sinus rhythm PROBABLE INFERIOR MYOCARDIAL INFARCTION MODERATE T-WAVE ABNORMALITY, CONSIDER LATERAL ISCHEMIA ABNOR MAL ECG PREVIOUS TRACING : 07/13/2015 12.22 Compared to previous tracing, PVCs are resolved. DOCTOR: Jairo Khan Interpretating Date/Time 11/24/2016 16:38:14
[2016-11-24] MEDS: traZODone HCL 50 MG TAB PO SCH (20:41)
[2016-11-24] MEDS: ATORVASTATIN 40 MG TAB PO SCH (20:41)
[2016-11-24] MEDS: NYSTATIN 100,000 U/GM PWD 15 GM BTL TOPICAL SCH (21:34)
[2016-11-25] VITALS (8 sets, daily range): BP systolic 105–141; BP diastolic 47–72; PULSE 59–69; RESP 18–20; TEMP 97.9–98.2; O2SAT 92–96
[2016-11-25] MEDS: metroNIDAZOLE 500 MG INJ 100 ML IV SCH ×3 (05:26→22:44)
[2016-11-25] MEDS: INSULIN ASPART SUPPLEMENTAL SCALE SQ SCH ×4 (05:26→21:00)
[2016-11-25 05:50] LABS: AUTOMATED NEUTROPHIL # 5.4 TH/MM3 (1.8-7.7); BASOPHIL % 0.5 % (0.0-2.0); EOSINOPHIL # 0.5 TH/MM3 (0-0.4); EOSINOPHIL % 5.8 % (0.0-4.0); HEMATOCRIT 32.5 % (39.0-51.0); HEMO FLAGS DIFF FINAL; LYMPH % 20.9 % (9.0-44.0); LYMPHOCYTE # 1.7 TH/MM3 (1.0-4.8); MEAN CORPUSCULAR HEMOGLOBIN 29.9 PG (27.0-34.0); MEAN CORPUSCULAR HGB CONC 33.6 % (32.0-36.0); MONO % 8.5 % (0.0-8.0); NEUT % 64.3 % (16.0-70.0); PLATELET COUNT 177 TH/MM3 (150-450); RED BLOOD COUNT 3.66 MIL/MM3 (4.50-5.90); RED CELL DISTRIBUTION WIDTH 15.4 % (11.6-17.2); WHITE BLOOD COUNT 8.4 TH/MM3 (4.0-11.0)
[2016-11-25 06:22] LABS: BICARBONATE 18.7 MEQ/L (21.0-32.0); POTASSIUM 4.3 MEQ/L (3.5-5.1)
--- NOTE | 2016-11-25 08:20 | HHI.PR ---
Subjective Remarks awakes to voice, oriented x 3 poor historian no cp no sob has not had diarrhea since coming to hospital afraid to eat due to one time episode of N/V no palpitations has not been out of bed yet no dizziness no fever spoke to son yesterday, pt. recently at [facility] for vascular procedure for legs that was not done due to comorbidities. Objective Objective Results - Vital Signs Date Time Temp Pulse Resp B/P Pulse Ox O2 Delivery O2 Flow Rate FiO2 11/25/16 07:23 68 18 141/72 93 11/25/16 04:50 97.9 61 20 107/47 94 11/25/16 00:35 98.0 62 19 105/48 95 11/24/16 20:06 98.2 64 19 109/47 93 11/24/16 20:00 64 11/24/16 17:30 61 20 108/55 98 11/24/16 11:06 60 19 107/49 97 11/24/16 08:30 66 17 130/64 97 Room Air I/O 11/24/16 11/24/16 11/24/16 11/25/16 11/25/16 11/25/16 07:00 15:00 23:00 07:00 15:00 23:00 Intake Total 1228 ml 887 ml Output Total 500 ml 1300 ml 400 ml Balance -500 ml -72 ml 487 ml Intake Oral 480 ml 240 ml IV Total 748 ml 647 ml Output Urine Total 500 ml 1300 ml 400 ml # Voids 1 # Bowel Movements 0 0 Result Diagram: 11/25/16 0337 11/25/16 0337 Imaging Last Impressions Head CT 11/24/16 07 Signed Impressions: Service Date/Time: Thursday, November 24, 2016 07:32 - CONCLUSION: Remote bilateral thalamic infarcts. Cerebral atrophy and chronic ischemic small vessel vasculopathy. Right frontal laceration. Taurus Sandy MD Chest X-Ray 11/24/16 0701 Signed Impressions: Service Date/Time: Thursday, November 24, 2016 07:13 - CONCLUSION: Cardiomegaly previous CABG. Taurus Sandy MD Maxillofacial CT 11/24/16 0000 Signed Impressions: Service Date/Time: Thursday, November 24, 2016 07:32 - CONCLUSION: 1. Minimal fracture of the right nasal bone. 2. Periorbital and right facial swelling. Taurus Sandy MD Abdomen/Pelvis CT 11/24/16 0000 Signed Impressions: Service Date/Time: Thursday, November 24, 2016 07:37 - CONCLUSION: 1. Diverticulosis without diverticulitis. 2. Wall thickening versus nondistention of the mid transverse colon. No inflammatory changes. 3. Subcentimeter hepatic low densities, likely benign. Taurus Sandy MD Other Results Laboratory Tests Test 11/25/16 03:37 White Blood Count 8.4 Red Blood Count 3.66 Hemoglobin 10.9 Hematocrit 32.5 Mean Corpuscular Volume 89.0 Mean Corpuscular Hemoglobin 29.9 Mean Corpuscular Hemoglobin 33.6 Concent Red Cell Distribution Width 15.4 Platelet Count 177 Mean Platelet Volume 9.5 Neutrophils (%) (Auto) 64.3 Lymphocytes (%) (Auto) 20.9 Monocytes (%) (Auto) 8.5 Eosinophils (%) (Auto) 5.8 Basophils (%) (Auto) 0.5 Neutrophils # (Auto) 5.4 Lymphocytes # (Auto) 1.7 Monocytes # (Auto) 0.7 Eosinophils # (Auto) 0.5 Basophils # (Auto) 0.0 CBC Comment DIFF FINAL Differential Comment Sodium Level 141 Potassium Level 4.3 Chloride Level 111 Carbon Dioxide Level 18.7 Anion Gap 11 Blood Urea Nitrogen 19 Creatinine 0.94 Estimat Glomerular Filtration 77 Rate Random Glucose 125 Calcium Level 8.6 ROS General: Other (poor historian) Physical Exam Physical Exam GENERAL: This is a well-nourished, well-developed patient, in no apparent distress. SKIN: Erythematous rash to groin. Chronic venous discoloration, superficial ulcerations noted to both lower extremities. HEAD: Atraumatic. Normocephalic. No temporal or scalp tenderness. EYES: Pupils equal round and reactive. Extraocular motions intact. No scleral icterus. No injection or drainage. Sutures to right eyebrow, bridge of nose ENT: Nose without bleeding, purulent drainage or septal hematoma. Throat without erythema, tonsillar hypertrophy or exudate. Uvula midline. Airway patent. NECK: Trachea midline. No JVD or lymphadenopathy. Supple, nontender, no meningeal signs. CARDIOVASCULAR: Regular rate and rhythm with 2-3/6 murmurs, no gallops, no rubs. RESPIRATORY: Breath sounds diminished at bases. GASTROINTESTINAL: Abdomen soft and protuberant, mildly tender epigastric area, nondistended. No hepato-splenomegaly, or palpable masses. No guarding. MUSCULOSKELETAL: Extremities without clubbing, cyanosis. Bilateral lower extremities with trace pretibial edema, chronic venous discoloration. Bilateral pedal pulses 1+. No joint tenderness, effusion, or edema noted. No calf tenderness. Negative Homans sign bilaterally. NEUROLOGICAL: Awake, alert oriented 3. No focal deficit. Poor historian Urinary Catheter: No Vascular Central Line Catheter: No A/P Diagnosis: (1) Syncope (2) Diarrhea (3) Colitis (4) Dehydration (5) Coronary artery disease (6) Diabetes (7) Acute renal injury (8) PVD (peripheral vascular disease) (9) Laceration of eyebrow, right (10) fracture right nasal bone (11) Aortic stenosis Assessment and Plan 80-year-old male admitted from [facility] after syncopal episode. Complains of 3 days of watery diarrhea, intermittent abdominal pain, nausea, vomiting, no fever no chills. CT of the abdomen completed showing diverticulosis without diverticulitis, wall thickening versus nondistention of the mid transverse colon , no inflammatory changes. Admitted with possible colitis, rule out C. difficile Syncope secondary to dehydration, associated with diarrhea. Also pt. with significant CAD, echo 2014, EF 35-40%, mild to mod. aortic stenosis. Will need to evaluate whether syncope was cardiogenic in nature. D/W pt's son, pt. recently at [facility] for vascular procedure that was not done due to comorbidities. Continue with cautious hydration Continuous cardiac telemetry -Hold blood pressure medications -Orthostatics VS q shift x 3 -2D echo -Cardiology consult, Dr. Gardiner Fracture right nasal bone, periorbital and right facial swelling with laceration to right eyebrow Monitor wound Possible colitis, rule out C. difficile -Continue with cautious hydration Stool pending for C. difficile-not stools yet Continue with Flagyl 500 mg IV every 8 -Monitor electrolytes Acute renal injury secondary to dehydration-improving Continue with IV fluids Avoid nephrotoxic agents Type 2 diabetes Accu-Cheks before meals and at bedtime with low-dose insulin therapy PVD, chronic venous discoloration and ulceration Continue with leg Oli wraps and wound care Coronary artery disease Continue home meds Aortic stenosis -2D echo Avoid anticoagulation, patient has history of HIT Physical therapy for evaluation and treatment OOB today Enc. PO intake will f/u card recommendations, continue with syncope work up poss. dc tomorrow D/W RN D/W Dr. Hanson D/W pt This patient was seen by myself and Dr. Hanson, this note is written on his behalf Problem Qualifiers (1) Syncope: Qualified Code: R55 - Syncope, unspecified syncope type (2) Diarrhea: Qualified Code: R19.7 - Diarrhea, unspecified type (3) Coronary artery disease: Qualified Code: I25.10 - Coronary artery disease involving [place] coronary artery of [place] heart without angina pectoris (4) Diabetes: Qualified Code: E11.69 - Type 2 diabetes mellitus with other specified complication, unspecified termite renewal inspector insulin use status (5) Laceration of eyebrow, right: Qualified Code: S01.111A - Laceration of eyebrow, right, initial encounter (6) Aortic stenosis: Qualified Code: I35.0 - Aortic valve stenosis, unspecified etiology Franchesca Yost Nov 25, 2016 08:20
[2016-11-25] MEDS: SODIUM CHLORIDE 0.9% FLUSH 5 ML FLUSH FLUSH SCH ×2 (08:57→21:00)
[2016-11-25] MEDS: CLOPIDOGREL 75 MG TAB PO SCH (08:58)
[2016-11-25] MEDS: EZETIMIBE 10 MG TAB PO SCH (08:58)
[2016-11-25] MEDS: GABAPENTIN 300 MG CAP PO SCH ×2 (08:58→22:42)
[2016-11-25] MEDS: MULTIVITAMINS/MINERALS THERAPEUTIC TAB PO SCH (08:58)
[2016-11-25] MEDS: POTASSIUM CHLORIDE 10 MEQ CONTROLLED RELEASE TAB PO SCH (08:58)
[2016-11-25] MEDS: ASPIRIN EC 81 MG TABEC PO SCH (08:58)
[2016-11-25] MEDS: ISOSORBIDE MONONITRATE 30 MG TAB PO SCH (08:58)
[2016-11-25] MEDS: NYSTATIN 100,000 U/GM PWD 15 GM BTL TOPICAL SCH ×2 (09:00→22:40)
--- NOTE | 2016-11-25 15:03 | MB ---
cc: JANET ROSE MD DATE OF CONSULTATION: 11/25/2016. REASON FOR CONSULTATION: Syncope. HISTORY OF PRESENT ILLNESS The patient is a very pleasant patient known to Dr. 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 His past medical history is quite significant and detailed well in Dr. Gardiner's addendum dated 06/12/2015 in the electronic medical record, which can be used by the physicians for reference. He has been in a snf where, over the last few days, he has had significant trouble with diarrhea. After three days of having significant diarrhea, he was on a bedside commode where he had a syncopal episode, falling down and hitting his head and suffering a significant facial laceration requiring quite a few sutures. He has no recollection of the actual events. He was brought in and has been stable while being observed. He denies any symptoms whatsoever now such as chest pain, shortness of breath, lightheadedness, or dizziness and he denies any other episodes of syncope. PAST MEDICAL HISTORY: 1. 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 2. Remote history of polymorphic ventricular tachycardia. 3. Peripheral vascular disease. 4. Diabetes. 5. Hypertension. 6. Hyperlipidemia. 7. NSTEMI. 8. Chronic kidney disease. 9. Obesity. 10. Gastroesophageal reflux disease (GERD). CURRENT MEDICATIONS: 1. Lipitor 40 milligrams at bedtime. 2. Trazodone. 3. Flagyl. 4. Aspirin 81 milligrams daily. 5. 5 milligrams daily. 6. Zetia. 7. Neurontin. 8. Imdur 30 milligrams daily. ALLERGIES: 1. HEPARIN. 2. VERSED. PHYSICAL EXAMINATION: VITAL SIGNS: Afebrile, pulse 59, respiratory rate 19, blood pressure 130/59, satting 92% on room air. GENERAL: A very pleasant well-appearing elderly gentleman in no distress. NECK: No jugular venous distention. LUNGS: Clear to auscultation bilaterally. CARDIOVASCULAR: Regular rate and rhythm. A 3/6 systolic murmur is appreciated. ABDOMEN: Benign. EXTREMITIES: No edema. LABORATORY DATA: White count 8.4, hematocrit 32.5, platelets 177,000. Sodium 141, potassium 4.3, chloride 111, bicarb 18.7, BUN 19, creatinine 0.94, glucose 125. Cardiac enzymes are negative. IMAGING STUDIES: Chest x-ray shows cardiomegaly. EKGS: EKG shows sinus rhythm with diffuse nonspecific ST changes. IMPRESSION Syncope. The patient has some episodes of low blood pressures and this may be due to his significant recent diarrhea. This could certainly have caused his episode of syncope. His murmur on exam is more significant than I would have anticipated from the mild to moderate aortic stenosis seen on his echo of about a year and a half ago. I will update this echo to ensure his aortic stenosis has not progressed significantly; otherwise, we will review his carotid Dopplers and watch him on telemetry as well as provide gentle hydration. If his studies are unremarkable, I expect he can be discharged home with outpatient follow up with Dr. Gardiner where consideration towards a longer term monitor such as a thirty-day Holter or potentially even a loop recorder could be considered if there becomes more of a concern for arrhythmogenic syncope. Further recommendation will be based on his clinical course. Thank you again for the opportunity to participate in this patient's care. MD PALAK Goldberg/JANELL /2:12 PM /2:52 PM
[2016-11-25] MEDS: SODIUM CHLOR 0.9% 1000 ML INJ 1,000 ML IV SCH (15:07)
--- NOTE | 2016-11-25 15:53 | EC ---
Study Study Date:11/25/2016 STUDY CONCLUSIONS SUMMARY - Left ventricle: The cavity size was normal. Wall thickness was normal. Systolic function was mildly to moderately reduced. The estimated ejection fraction was in the range of 40% to 45%. Diffuse hypokinesis. - Aortic valve: Transvalvular velocity was increased. There was mild to moderate stenosis. If LV function is below 40, please consider prescribing an ACEI or ARB or document rationale for non-use. PROCEDURE DATA STUDY STATUS: Elective. Procedure: Transthoracic echocardiography. Image quality was suboptimal. The study was technically limited due to body habitus. Scanning was performed from the parasternal, apical, and subcostal acoustic windows. Study completion: The patient tolerated the procedure well. Transthoracic echocardiography. M-mode, complete 2D, complete spectral Doppler, and color Doppler. Patient status: Inpatient. CARDIAC ANATOMY LEFT VENTRICLE: The cavity size was normal. Wall thickness was normal. Systolic function was mildly to moderately reduced. The estimated ejection fraction was in the range of 40% to 45%. Diffuse hypokinesis. Images were inadequate for LV wall motion assessment. AORTIC VALVE: Poorly visualized. Doppler: Transvalvular velocity was increased. There was mild to moderate stenosis. No regurgitation. Mean gradient: 14mm Hg (S). Peak gradient: 23mm Hg (S). AORTA: Aortic root: The aortic root was normal in size. MITRAL VALVE: Structurally normal valve. Doppler: Transvalvular velocity was within the normal range. There was no evidence for stenosis. No regurgitation. Peak gradient: 5mm Hg (D). LEFT ATRIUM: The atrium was normal in size. RIGHT VENTRICLE: The cavity size was normal. Wall thickness was normal. PULMONIC VALVE: Doppler: Transvalvular velocity was within the normal range. There was no evidence for stenosis. Mild to moderate regurgitation. TRICUSPID VALVE: Structurally normal valve. Doppler: Transvalvular velocity was within the normal range. Trace to mild regurgitation. PULMONARY ARTERY: The main pulmonary artery was normal-sized. Systolic pressure was within the normal range. RIGHT ATRIUM: The atrium was normal in size. PERICARDIUM: There was no pericardial effusion. SYSTEMIC VEINS: Inferior vena cava: The vessel was normal in size. BASIC MEASUREMENTS ADULT NORMAL Left ventricle LV internal dimension, ED, chordal level, 48.2 mm 43-52 PLAX LV internal dimension, ES, chordal level, *40.7 mm 23-38 PLAX Fractional shortening, chordal level, PLAX *16 % >29 LV posterior wall thickness, ED 10.3 mm IVS/LVPW ratio, ED 1.19 <1.3 Ventricular septum Septal thickness, ED 12.3 mm Aortic valve Leaflet separation 18 mm 15-26 BASIC MEASUREMENTS ADULT NORMAL Aortic valve Leaflet separation 18 mm 15-26 Aorta Root diameter, ED 25 mm 20-37 Left atrium Anterior-posterior dimension, ES *59 mm 19-40 LA/aortic root ratio 2.36 DOPPLER MEASUREMENTS ADULT NORMAL Main pulmonary artery Pressure, S 21 mm Hg =30 Pressure, ED 16 mm Hg Aortic valve Peak velocity, S 241 cm/s Mean velocity, S 179 cm/s VTI, S 57.5 cm Mean gradient, S 14 mm Hg Peak gradient, S 23 mm Hg Mitral valve Peak E-wave velocity 113 cm/s Peak A-wave velocity 91.8 cm/s Deceleration time 201 ms 150-230 Peak gradient, D 5 mm Hg Peak E/A ratio 1.2 Tricuspid valve Regurgitant peak velocity 160 cm/s Peak RV-RA gradient, S 10 mm Hg Maximal regurgitant velocity 160 cm/s Systemic veins Estimated CVP 10 mm Hg Right ventricle RV pressure, S 28 mm Hg <30 Pulmonic valve Peak velocity, S 136 cm/s Regurgitant velocity, ED 126 cm/s LEGEND: Mean values are shown as u=mean value. Asterisk (*) chong values outside specified normal range. Prepared and signed by Jairo Khan [id number]
--- NOTE | 2016-11-25 17:29 | RADRPT ---
EXAM DATE/TIME: 11/25/2016 16:12 [facility] COMPARISON: No previous studies available for comparison. INDICATIONS : Syncope. MEDICAL HISTORY : Myocardial infarction. Hypercholesterolemia. Hernia, umbilical. Neuropathy. Syncope. Palpitaions. Radha st pain. Hypertension. Chronic obstructive pulmonary disease. Sleep apnea. Arthritis. Diabetes. SURGICAL HISTORY : Tonsillectomy. CABG. Umbilical hernia repair. Bilateral cataract surgery. Cardiac catheterization. Le ft carpal tunnel release. Left knee replacement. ENCOUNTER: Initial ACUITY: 3 days PAIN SCORE: 0/10 LOCATION: Bilateral neck PEAK SYSTOLIC VELOCITIES (cm/sec): ICA/CCA RATIO: Right: 1.2 Left: 1.1 ICA: Right: 124 Left: 85 CCA: Right: 102 Left: 74 ECA: Right: 296 Left: 401 VERTEBRAL: Right: 41 antegrade Left: 47 antegrade Elevated flow velocities and ICA/CCA ratios have been found to correlate with increased degrees of vessel stenosis, calculated as percentage of diameter relative to a normal segment of distal ICA/CCA FINDINGS: There is [id number] calcified plaque in the common carotid arteries bilaterally and moderate to severe calcified plaque around the carotid bifurcations and internal carotid arteries. However, no h emodynamically significant stenosis identified. CONCLUSION: 1. No hemodynamically significant stenosis identified in the common carotid or internal carotid arter ies. Extensive plaque present. Scot Castañeda MD on November 25, 2016 at 17:26 Board Certified Radiologist. This report was verified electronically.
[2016-11-25] MEDS: traZODone HCL 50 MG TAB PO SCH (22:41)
[2016-11-25] MEDS: ATORVASTATIN 40 MG TAB PO SCH (22:42)
[2016-11-26 01:36] VITALS: BP_SYST 128; BP_SYST 132; BP_DIAS 73; BP_DIAS 76; PULSE 88; RESP 18; O2SAT 97
[2016-11-26 04:54] VITALS: BP 131/75; PULSE 79; RESP 20; TEMP 98; O2SAT 98
[2016-11-26] MEDS: metroNIDAZOLE 500 MG INJ 100 ML IV SCH (05:59)
[2016-11-26] MEDS: INSULIN ASPART SUPPLEMENTAL SCALE SQ SCH ×2 (06:14→13:55)
--- NOTE | 2016-11-26 07:58 | HHI.PR ---
Subjective Remarks No chest pain Or shortness of breath Orthostatics negative No further diarrhea Tolerating diet well No nausea, no vomiting No abdominal pain No fever Objective Objective Results - Vital Signs Date Time Temp Pulse Resp B/P Pulse Ox O2 Delivery O2 Flow Rate FiO2 11/26/16 04:54 98.0 79 20 131/75 98 11/26/16 01:36 88 18 128/73 97 132/76 11/25/16 20:09 66 18 122/68 96 11/25/16 20:00 66 11/25/16 15:47 69 20 133/60 96 133/67 129/66 11/25/16 11:49 98.2 59 19 130/59 92 11/25/16 08:00 62 I/O 11/25/16 11/25/16 11/25/16 11/26/16 11/26/16 11/26/16 07:00 15:00 23:00 07:00 15:00 23:00 Intake Total 887 ml 790 ml 700 ml Output Total 400 ml 800 ml 900 ml Balance 487 ml -10 ml -200 ml Intake Oral 240 ml 240 ml IV Total 647 ml 550 ml 700 ml Output Urine Total 400 ml 800 ml 900 ml # Bowel Movements 0 0 Result Diagram: 11/25/16 0337 11/25/16 0337 Imaging Last Impressions Head CT 11/24/16700 Signed Impressions: Service Date/Time: Thursday, November 24, 2016 07:32 - CONCLUSION: Remote bilateral thalamic infarcts. Cerebral atrophy and chronic ischemic small vessel vasculopathy. Right frontal laceration. Taurus Sandy MD Chest X-Ray 11/24/16700 Signed Impressions: Service Date/Time: Thursday, November 24, 2016 07:13 - CONCLUSION: Cardiomegaly previous CABG. Taurus Sandy MD Maxillofacial CT 11/24/16 0000 Signed Impressions: Service Date/Time: Thursday, November 24, 2016 07:32 - CONCLUSION: 1. Minimal fracture of the right nasal bone. 2. Periorbital and right facial swelling. Taurus Sandy MD Abdomen/Pelvis CT 11/24/16 0000 Signed Impressions: Service Date/Time: Thursday, November 24, 2016 07:37 - CONCLUSION: 1. Diverticulosis without diverticulitis. 2. Wall thickening versus nondistention of the mid transverse colon. No inflammatory changes. 3. Subcentimeter hepatic low densities, likely benign. MD MURTAZA [place] General: No: Fatigue, Weakness HEENT: No: Sore Throat, Dysphagia Cardiac: No: Chest Pain, Edema, Palpitations Pulmonary: No: Cough, SOB, Wheezing GI: No: Abdominal Pain, BM, Diarrhea, N/V /GUIDANCE AND CONTROL SYSTEM ENGINEER: No: Dysuria, Urgency Neuro/MS: No: Lightheaded, Confusion Psych: No: Anxiety, Depression Skin: No: Itching, Rash Physical Exam Physical Exam GENERAL: This is a well-nourished, well-developed patient, in no apparent distress. SKIN: Erythematous rash to groin. Chronic venous discoloration, superficial ulcerations noted to both lower extremities. HEAD: Atraumatic. Normocephalic. No temporal or scalp tenderness. EYES: Pupils equal round and reactive. Extraocular motions intact. No scleral icterus. No injection or drainage. Sutures to right eyebrow, bridge of nose ENT: Nose without bleeding, purulent drainage or septal hematoma. Throat without erythema, tonsillar hypertrophy or exudate. Uvula midline. Airway patent. NECK: Trachea midline. No JVD or lymphadenopathy. Supple, nontender, no meningeal signs. CARDIOVASCULAR: Regular rate and rhythm with 2-3/6 murmurs, no gallops, no rubs. RESPIRATORY: Breath sounds diminished at bases. GASTROINTESTINAL: Abdomen soft and protuberant, mildly tender epigastric area, nondistended. No hepato-splenomegaly, or palpable masses. No guarding. MUSCULOSKELETAL: Extremities without clubbing, cyanosis. Bilateral lower extremities with trace pretibial edema, chronic venous discoloration. Bilateral pedal pulses 1+. No joint tenderness, effusion, or edema noted. No calf tenderness. Negative Homans sign bilaterally. NEUROLOGICAL: Awake, alert oriented 3. No focal deficit. Poor historian Urinary Catheter: No Vascular Central Line Catheter: No A/P Diagnosis: (1) Syncope (2) Diarrhea (3) Colitis (4) Dehydration (5) Coronary artery disease (6) Diabetes (7) Acute renal injury (8) PVD (peripheral vascular disease) (9) Laceration of eyebrow, right (10) fracture right nasal bone (11) Aortic stenosis Assessment and Plan 80-year-old male admitted from group home after syncopal episode. Complains of 3 days of watery diarrhea, intermittent abdominal pain, nausea, vomiting, no fever no chills. CT of the abdomen completed showing diverticulosis without diverticulitis, wall thickening versus nondistention of the mid transverse colon , no inflammatory changes. Admitted with possible colitis, rule out C. difficile Syncope secondary to dehydration, associated with diarrhea. Also pt. with significant CAD, echo 2014, EF 35-40%, mild to mod. aortic stenosis. Will need to evaluate whether syncope was cardiogenic in nature. D/W pt's son, pt. recently at [facility] for vascular procedure that was not done due to comorbidities. Continue with cautious hydration Continuous cardiac telemetry -Hold blood pressure medications-blood pressure has remained stable -Orthostatics VS q shift x 3-negative -2D echo EF 40-45%, mild to moderate aortic stenosis -Cardiology consulted, input appreciated. Evaluated per Dr. Long. Agree with echo, carotid ultrasound order Carotid ultrasound results noted, no significant stenosis Fracture right nasal bone, periorbital and right facial swelling with laceration to right eyebrow Monitor wound Possible colitis, rule out C. difficile -Discontinue IV fluid Stool pending for C. difficile-not stools yet -Patient has not had any more stools, will DC Flagyl Acute renal injury secondary to dehydration-improving Avoid nephrotoxic agents Type 2 diabetes Accu-Cheks before meals and at bedtime with low-dose insulin therapy PVD, chronic venous discoloration and ulceration Continue with leg Oli wraps and wound care Coronary artery disease Continue home meds Aortic stenosis -2D echo done, results as above Avoid anticoagulation, patient has history of HIT Clinically improving, no episodes of syncope. Likely cause of GI symptoms possibly viral. Has not had any more stools, tolerating diet well Physical therapy for evaluation and treatment case management for discharge planning Plan to discharge later today Needs to to follow up with cardiology as outpatient D/W RN D/W Dr. Hanson D/W pt This patient was seen by myself and Dr. Hanson, this note is written on his behalf Discharge Planning 45 minutes Problem Qualifiers (1) Syncope: Qualified Code: R55 - Syncope, unspecified syncope type (2) Diarrhea: Qualified Code: R19.7 - Diarrhea, unspecified type (3) Coronary artery disease: Qualified Code: I25.10 - Coronary artery disease involving alturas coronary artery of alturas heart without angina pectoris (4) Diabetes: Qualified Code: E11.69 - Type 2 diabetes mellitus with other specified complication, unspecified detention insulin use status (5) Laceration of eyebrow, right: Qualified Code: S01.111A - Laceration of eyebrow, right, initial encounter (6) Aortic stenosis: Qualified Code: I35.0 - Aortic valve stenosis, unspecified etiology Franchesca Yost Nov 26, 2016 07:58
--- NOTE | 2016-11-26 07:59 | HHI.DCPOC ---
Discharge Care Plan Diagnosis: (1) Syncope (2) Aortic stenosis Your Health Problems Are: Difficulty with ADL Goals to Promote Your Health * To prevent worsening of your condition and complications * To maintain your health at the optimal level Directions to Meet Your Goals Take your medications as prescribed Follow your dietary instruction Follow activity as directed Keep your appointments as scheduled Take your immunizations and boosters as scheduled If your symptoms worsen call your PCP, if no PCP go to Urgent Care Center or Emergency Room Smoking is Dangerous to Your Health. Avoid second hand smoke Call the 24-hour hour crisis hotline for domestic abuse at Franhcesca Yost Nov 26, 2016 07:59
[2016-11-26 08:00] VITALS: BP 97/71; PULSE 66; RESP 18; TEMP 97.9; O2SAT 98
[2016-11-26] MEDS: CLOPIDOGREL 75 MG TAB PO SCH (08:48)
[2016-11-26] MEDS: GABAPENTIN 300 MG CAP PO SCH (08:48)
[2016-11-26] MEDS: ISOSORBIDE MONONITRATE 30 MG TAB PO SCH (08:49)
[2016-11-26] MEDS: ASPIRIN EC 81 MG TABEC PO SCH (08:49)
[2016-11-26] MEDS: MULTIVITAMINS/MINERALS THERAPEUTIC TAB PO SCH (08:49)
[2016-11-26] MEDS: NYSTATIN 100,000 U/GM PWD 15 GM BTL TOPICAL SCH (08:49)
[2016-11-26] MEDS: POTASSIUM CHLORIDE 10 MEQ CONTROLLED RELEASE TAB PO SCH (08:49)
[2016-11-26] MEDS: EZETIMIBE 10 MG TAB PO SCH (08:49)
[2016-11-26] MEDS: SODIUM CHLORIDE 0.9% FLUSH 5 ML FLUSH FLUSH SCH (08:49)
--- NOTE | 2016-11-26 09:39 | HHI.DS ---
Discharge Summary Admission Date Nov 24, 2016 at 08:31 Discharge Date: Nov 26, 2016 Admitting Diagnosis syncope, diarrhea, colitis (1) Syncope (2) Diarrhea (3) Colitis (4) Dehydration (5) Coronary artery disease (6) Diabetes (7) Acute renal injury (8) PVD (peripheral vascular disease) (9) Laceration of eyebrow, right (10) fracture right nasal bone (11) Aortic stenosis CBC/BMP: 11/25/16 0337 11/25/16 0337 Significant Findings Laboratory Tests Test 11/24/16 11/25/16 07:00 03:37 White Blood Count 13.1 TH/MM3 (4.0-11.0) Red Blood Count 4.36 MIL/MM3 3.66 MIL/MM3 (4.50-5.90) (4.50-5.90) Neutrophils (%) (Auto) 80.2 % (16.0-70.0) Neutrophils # (Auto) 10.5 TH/MM3 (1.8-7.7) Eosinophils # (Auto) 0.5 TH/MM3 0.5 TH/MM3 (0-0.4) (0-0.4) Carbon Dioxide Level 19.7 MEQ/L 18.7 MEQ/L (21.0-32.0) (21.0-32.0) Blood Urea Nitrogen 28 MG/DL (7-18) 19 MG/DL (7-18) Creatinine 1.48 MG/DL (0.60-1.30) Estimat Glomerular Filtration 46 ML/MIN (>89) 77 ML/MIN (>89) Rate Random Glucose 201 MG/DL 125 MG/DL (74-106) (74-106) Troponin I LESS THAN 0.02 NG/ML (0.02-0.05) Hemoglobin 10.9 GM/DL (13.0-17.0) Hematocrit 32.5 % (39.0-51.0) Monocytes (%) (Auto) 8.5 % (0.0-8.0) Eosinophils (%) (Auto) 5.8 % (0.0-4.0) Chloride Level 111 MEQ/L (98-107) Imaging Last Impressions Carotid Artery Ultrasound 11/25/16 0000 Signed Impressions: Service Date/Time: Friday, November 25, 2016 16:12 - CONCLUSION: 1. No hemodynamically significant stenosis identified in the common carotid or internal carotid arteries. Extensive plaque present. Scot Castañeda MD Head CT 11/24/16700 Signed Impressions: Service Date/Time: Thursday, November 24, 2016 07:32 - CONCLUSION: Remote bilateral thalamic infarcts. Cerebral atrophy and chronic ischemic small vessel vasculopathy. Right frontal laceration. Taurus Sandy MD Chest X-Ray 11/24/16700 Signed Impressions: Service Date/Time: Thursday, November 24, 2016 07:13 - CONCLUSION: Cardiomegaly previous CABG. Taurus Sandy MD Maxillofacial CT 11/24/16 0000 Signed Impressions: Service Date/Time: Thursday, November 24, 2016 07:32 - CONCLUSION: 1. Minimal fracture of the right nasal bone. 2. Periorbital and right facial swelling. Taurus Sandy MD Abdomen/Pelvis CT 11/24/16 0000 Signed Impressions: Service Date/Time: Thursday, November 24, 2016 07:37 - CONCLUSION: 1. Diverticulosis without diverticulitis. 2. Wall thickening versus nondistention of the mid transverse colon. No inflammatory changes. 3. Subcentimeter hepatic low densities, likely benign. Taurus Sandy MD Hospital Course This a pleasant 80-year-old male with significant past medical history of CAD, non-STEMI, PVD, type 2 diabetes, hypertension. [facility] was [facility] after he had a syncopal episode. According to patient and information obtained from [facility], patient has been having 3 days of watery diarrhea, nonbloody associated with intermittent epigastric discomfort, has had some nausea. Did have one episode of vomiting after he ate in the emergency room. Patient was sitting on the toilet when he had a syncopal episode hitting his head on the sink. He awoke on the floor and was able to get up. He has a laceration to the bridge of the nose as well as one to the right eyebrow. Denies any recent outside travel, no antibiotics, no other sick relatives. Patient resides at [facility]. Indicated he was hospitalized 6 weeks ago for some type of vascular procedure to the legs, he was not sure if it was here or at another facility. There was no recent hospitalization here. The last time he was here was in 2014. Patient denied any other symptoms such as chest pain, no shortness of breath, no cough, no sputum production. Denied any fever or chills. Denied any palpitations, no feelings of lightheadedness prior to episode. His rf test engineer is Dr. Gloria. Patient was evaluated in the emergency room, he was noted with low blood pressure 113/56, heart rate 66, temperature 97.6. He was noted dehydrated, BUN 28, creatinine 1.48. Blood glucose was 201. CO2 was 19.7. WBC was mildly elevated, 13.1. Stool for C. difficile currently pending. Patient had sutures to right eyebrow and in nasal bridge laceration. Imaging studies were completed, Last Impressions Head CT 11/24/16700 Signed Impressions: Service Date/Time: Thursday, November 24, 2016 07:32 - CONCLUSION: Remote bilateral thalamic infarcts. Cerebral atrophy and chronic ischemic small vessel vasculopathy. Right frontal laceration. Taurus Sandy MD Chest X-Ray 11/24/16700 Signed Impressions: Service Date/Time: Thursday, November 24, 2016 07:13 - CONCLUSION: Cardiomegaly previous CABG. Taurus Sandy MD Maxillofacial CT 11/24/16 0000 Signed Impressions: Service Date/Time: Thursday, November 24, 2016 07:32 - CONCLUSION: 1. Minimal fracture of the right nasal bone. 2. Periorbital and right facial swelling. Taurus Sandy MD Abdomen/Pelvis CT 11/24/16 0000 Signed Impressions: Service Date/Time: Thursday, November 24, 2016 07:37 - CONCLUSION: 1. Diverticulosis without diverticulitis. 2. Wall thickening versus nondistention of the mid transverse colon. No inflammatory changes. 3. Subcentimeter hepatic low densities, likely benign. Taurus Sandy MD CT of the abdomen concerning for possible colitis, patient was started on Flagyl and given IV fluids. Patient was examined, he had poor appetite, abdominal discomfort was mild. Patient was admitted for further evaluation and treatment for: (1) Syncope (2) Diarrhea (3) Colitis (4) Dehydration (5) Coronary artery disease (6) Diabetes (7) Acute renal injury (8) PVD (peripheral vascular disease) (9) Laceration of eyebrow, right (10) fracture right nasal bone (11) Aortic stenosis During the course of the hospitalization, the following took place: 80-year-old male admitted from [facility] after syncopal episode. Complains of 3 days of watery diarrhea, intermittent abdominal pain, nausea, vomiting, no fever no chills. CT of the abdomen completed showing diverticulosis without diverticulitis, wall thickening versus nondistention of the mid transverse colon , no inflammatory changes. Admitted with possible colitis, rule out C. difficile Syncope secondary to dehydration, associated with diarrhea. Also pt. with significant CAD, echo 2014, EF 35-40%, mild to mod. aortic stenosis. Syncope work up also done due to valvular disease, presence of murmur. Hydrated cautiously Continuous cardiac telemetry -Held blood pressure medications-blood pressure remained stable, started to come up -Orthostatics VS q shift x 3-negative -2D echo EF 40-45%, mild to moderate aortic stenosis, evaluated per cardiology. -Cardiology consulted, input appreciated. Evaluated per Dr. Long. Agreed with echo, carotid ultrasound ordered Carotid ultrasound results noted, no significant stenosis -Cleared for cardiology, stable, likely cause of syncope was dehydration. Fracture right nasal bone, periorbital and right facial swelling with laceration to right eyebrow. Suturing done in ED Monitored wound -remained stable, no infection. Swelling came down -Remove sutures in 10 days Possible colitis, rule out C. difficile -did not have any stools, cdiff unable to be done -Flagyl DC Acute renal injury secondary to dehydration-improved Avoided nephrotoxic agents -BMP monitored -Given IVF Type 2 diabetes Accu-Cheks before meals and at bedtime with low-dose insulin therapy PVD, chronic venous discoloration and ulceration Continue with leg Oli wraps and wound care Coronary artery disease Continued home meds Aortic stenosis -2D echo done, results as above -stable Avoided anticoagulation, patient has history of HIT Clinically improved, no episodes of syncope. Likely cause of GI symptoms possibly viral. Has not had any more stools, tolerating diet well Physical therapy for evaluation and treatment/ case management for discharge planning Pt. cleared for discharge. Pt's son updated throughout hospitalization, questions answered in detail. Pt. instructed to: F/U cardiology 1-2 weeks F/U PCP Diet-heart healthy Activity-as tolerated. Pt Condition on Discharge: Stable Discharge Disposition: Discharge to SNF Discharge Instructions DIET: Follow Instructions for: Heart Healthy Diet Activities you can perform: Weight Bearing as Yoly Follow up Referrals: Cardiology with Ashley Gardiner MD PCP Follow-up Continued Medications: Aspirin (Aspirin) 81 Mg Tabdr 81 MG PO DAILY TAB Atorvastatin (Atorvastatin) 40 Mg Tab 40 MG PO HS Cholesterol Management #30 Ref 0 TAB Clopidogrel (Clopidogrel) 75 Mg Tab 75 MG PO DAILY Blood Clot Prevention #30 Ref 0 TAB Ezetimibe (Zetia) 10 Mg Tab 10 MG PO DAILY #30 Ref 0 TAB Furosemide (Furosemide) 40 Mg Tab 40 MG PO DAILY #30 Ref 0 TAB Gabapentin (Gabapentin) 300 Mg Cap 300 MG PO BID #60 Ref 0 CAP Isosorbide Mononitrate ER (Isosorbide Mononitrate ER) 30 Mg René 30 MG PO DAILY Prevent Chest Pain #30 Ref 0 TAB Lisinopril (Lisinopril) 20 Mg Tab 20 MG PO DAILY #30 Ref 0 TAB Metformin (Metformin) 850 Mg Tab 850 MG PO BIDPC With meals Blood Sugar Management Ref 0 TAB Metoprolol Tartrate (Metoprolol Tartrate) 50 Mg Tab 50 MG PO BID #60 Ref 0 TAB Multiple Vitamins W/ Minerals (Multivitamin Women) 1 Tab Tab 1 TAB PO DAILY Nutritional Supplement Ref 0 TAB Nateglinide (Nateglinide) 120 Mg Tab 120 MG PO TIDAC Blood Sugar Management #90 Ref 0 TAB Nitroglycerin SL (Nitroglycerin SL) 0.4 Mg Subl 0.4 MG SL DIRECTED ONE TABLET UNDER THE TONGUE NEEDED FOR CHEST PAIN, MAY REPEAT EVERY FIVE MINUTES FOR A TOTAL OF 3 DOSES OR CALL 911 IF NO RELIEF PRN CHEST PAIN #100 Ref 0 TAB.SL Potassium Chloride ER (Potassium Chloride ER) 10 Meq Tab 10 MEQ PO DAILY Electrolyte Replacement #30 Ref 0 TAB Trazodone (Trazodone) 50 Mg Tab 50 MG PO HS Control Depression #30 Ref 0 TAB Franchesca Yost Nov 26, 2016 09:39
--- NOTE | 2016-11-26 10:13 | PD.CARD.PN ---
Subjective Subjective Remarks No sx, wants to go home Objective Medications Administered Medications Medications (Trade) Dose Ordered Sig/Aquiles Route PRN Reason Start Time Stop Time Status Last Admin Dose Admin Sodium Chloride (NS 1000 ml Inj) 1,000 ml @ 50 mls/hr Q20H IV 11/24/16 08:37 11/24/16 20:44 IV Flush (NS Flush) 2 ml BID FLUSH 11/24/16 09:00 11/24/16 09:00 Ondansetron HCl (Zofran Inj) 4 mg Q6H PRN IVP NAUSEA OR VOMITING 11/24/16 08:45 11/24/16 09:22 Aspirin (Ecotrin Ec) 81 mg DAILY PO 11/24/16 09:00 11/26/16 08:49 Atorvastatin Calcium (Lipitor) 40 mg HS PO 11/24/16 21:00 11/25/16 22:42 Clopidogrel Bisulfate (Plavix) 75 mg DAILY PO 11/24/16 09:00 11/26/16 08:48 EZETIMIBE (Zetia) 10 mg DAILY PO 11/24/16 09:00 11/26/16 08:49 Gabapentin (Neurontin) 300 mg BID PO 11/24/16 09:00 11/26/16 08:48 Isosorbide Mononitrate (Imdur) 30 mg DAILY PO 11/24/16 09:00 11/26/16 08:49 Metoprolol Tartrate (Lopressor) 50 mg BID PO 11/24/16 09:00 Hold 11/24/16 09:23 Multivitamins/ Minerals Therapeutic (Theragran M Tab) 1 tab DAILY PO 11/24/16 09:00 11/26/16 08:49 Potassium Chloride (KCl) 10 meq DAILY PO 11/24/16 09:00 11/26/16 08:49 Trazodone HCl 50 mg 50 mg HS PO 11/24/16 21:00 11/25/16 22:41 Metronidazole (Flagyl 500 Mg Inj) 100 ml @ 100 mls/hr Q8H IV 11/24/16 14:45 11/26/16 05:59 Nystatin (Mycostatin Powder) 1 applic Q12HR TOPICAL 11/24/16 21:00 11/26/16 08:49 Vital Signs / I&O Vital Signs Date Time Temp Pulse Resp B/P Pulse Ox O2 Delivery O2 Flow Rate FiO2 11/26/16 08:00 97.9 66 18 97/71 98 11/26/16 04:54 98.0 79 20 131/75 98 11/26/16 01:36 88 18 128/73 97 132/76 11/25/16 20:09 66 18 122/68 96 11/25/16 20:00 66 11/25/16 15:47 69 20 133/60 96 133/67 129/66 11/25/16 11:49 98.2 59 19 130/59 92 I/O 11/25/16 11/25/16 11/25/16 11/26/16 11/26/16 11/26/16 07:00 15:00 23:00 07:00 15:00 23:00 Intake Total 887 ml 790 ml 700 ml Output Total 400 ml 800 ml 900 ml Balance 487 ml -10 ml -200 ml Intake Oral 240 ml 240 ml IV Total 647 ml 550 ml 700 ml Output Urine Total 400 ml 800 ml 900 ml # Bowel Movements 0 0 Physical Exam GENERAL: This is a well-nourished, well-developed patient, in no apparent distress. CARDIOVASCULAR: Regular rate and rhythm 3/6 BHARTI RESPIRATORY: Clear to auscultation. Breath sounds equal bilaterally. No wheezes , rales, or rhonchi. GASTROINTESTINAL: Abdomen soft, non-tender, nondistended. Normal active bowel sounds MUSCULOSKELETAL: Extremities without clubbing, cyanosis, or edema. NEURO: Alert & Oriented x4 to person, place, time, situation. Moves all ext x4 Imaging Last Impressions Carotid Artery Ultrasound 11/25/16 0000 Signed Impressions: Service Date/Time: Friday, November 25, 2016 16:12 - CONCLUSION: 1. No hemodynamically significant stenosis identified in the common carotid or internal carotid arteries. Extensive plaque present. Scot Castañeda MD Head CT 11/24/16 07 Signed Impressions: Service Date/Time: Thursday, November 24, 2016 07:32 - CONCLUSION: Remote bilateral thalamic infarcts. Cerebral atrophy and chronic ischemic small vessel vasculopathy. Right frontal laceration. Taurus Sandy MD Chest X-Ray 11/24/16 07 Signed Impressions: Service Date/Time: Thursday, November 24, 2016 07:13 - CONCLUSION: Cardiomegaly previous CABG. Taurus Sandy MD Maxillofacial CT 11/24/16 0000 Signed Impressions: Service Date/Time: Thursday, November 24, 2016 07:32 - CONCLUSION: 1. Minimal fracture of the right nasal bone. 2. Periorbital and right facial swelling. Taurus Sandy MD Abdomen/Pelvis CT 11/24/16 0000 Signed Impressions: Service Date/Time: Thursday, November 24, 2016 07:37 - CONCLUSION: 1. Diverticulosis without diverticulitis. 2. Wall thickening versus nondistention of the mid transverse colon. No inflammatory changes. 3. Subcentimeter hepatic low densities, likely benign. Taurus Sandy MD Assessment and Plan Problem List: (1) Syncope Assessment and Plan: Likely due to dehydration, no events on tele, echo shows stable valvular dz. (2) Aortic stenosis Assessment and Plan: Mild to moderate (murmur a bit louder than would expect from this, I did ask the tech to take additional measurements and will amend note if significant changes seen) (3) Dehydration Assessment and Plan: Resolved, renal fx improved. Assessment and Plan Ok to d/c from cardiac standpoint, he will see Dr. Gardiner in 1-2 weeks. Problem Qualifiers (1) Syncope: Qualified Code: R55 - Syncope, unspecified syncope type (2) Aortic stenosis: Qualified Code: I35.0 - Aortic valve stenosis, unspecified etiology Jairo Khan MD Nov 26, 2016 10:13
[2016-11-26 11:50] VITALS: BP 124/63; PULSE 67; RESP 20; TEMP 98.5; O2SAT 94
[2016-11-26 14:43] VITALS: PULSE 63
[2016-11-26 16:00] VITALS: BP 130/60; PULSE 77; RESP 18; TEMP 98.5; O2SAT 93
--- NOTE | 2016-11-27 15:47 | ECHLIM ---
Study Study Date:11/26/2016 STUDY CONCLUSIONS SUMMARY - Left ventricle: The cavity size was normal. Wall thickness was normal. Systolic function was normal. The estimated ejection fraction was in the range of 55% to 60%. Wall motion was normal; there were no regional wall motion abnormalities. - Aortic valve: Mild to moderate regurgitation. Valve area: 1.21cm^2 (Vmax). If LV function is below 40, please consider prescribing an ACEI or ARB or document rationale for non-use. PROCEDURE DATA STUDY STATUS: Elective. Procedure: Transthoracic echocardiography. Image quality was good. Scanning was performed from the parasternal, apical, and subcostal acoustic windows. Study completion: The patient tolerated the procedure well. Transthoracic echocardiography. M-mode, complete 2D, complete spectral Doppler, and color Doppler. Height: Height: 67in. Weight: Weight: 219.5lb. Body mass index: BMI: 34.5kg/m^2. Body surface area: BSA: 2.11m^2. Patient status: Inpatient. CARDIAC ANATOMY LEFT VENTRICLE: The cavity size was normal. Wall thickness was normal. Systolic function was normal. The estimated ejection fraction was in the range of 55% to 60%. Wall motion was normal; there were no regional wall motion abnormalities. AORTIC VALVE: Trileaflet. Doppler: Mild to moderate regurgitation. Valve area: 1.21cm^2 (Vmax). Indexed valve area: 0.57cm^2/m^2 (Vmax). Mean gradient: 21mm Hg (S). Peak gradient: 35mm Hg (S). AORTA: Aortic root: The aortic root was normal in size. MITRAL VALVE: Structurally normal valve. Doppler: Transvalvular velocity was within the normal range. There was no evidence for stenosis. No regurgitation. LEFT ATRIUM: The atrium was normal in size. RIGHT VENTRICLE: The cavity size was normal. Wall thickness was normal. PULMONIC VALVE: Doppler: Transvalvular velocity was within the normal range. There was no evidence for stenosis. No regurgitation. TRICUSPID VALVE: Structurally normal valve. Doppler: Transvalvular velocity was within the normal range. No regurgitation. PULMONARY ARTERY: The main pulmonary artery was normal-sized. Systolic pressure was within the normal range. RIGHT ATRIUM: The atrium was normal in size. PERICARDIUM: There was no pericardial effusion. SYSTEMIC VEINS: Inferior vena cava: The vessel was normal in size. Patient weight: 219.5lb _Ejection fraction:_ 65-75% _Fractional shortening:_ 32% up to 5Kg 5-11.5Kg 11.6-22.9Kg 23-45Kg 45-57Kg Aortic Root 7-13 <17 13-22 17-27 17-27 LA diam 6-13 <23 24-38 33-47 37-40 RVID 10-17 7-15 7-15 7-18 8-17 LVIDd 12-22 <32 24-38 33-47 37-40 LVPW 2-4 3-6 5-7 6-8 7-8 IVS 2-4 3-6 5-7 6-8 7-8 DOPPLER MEASUREMENTS ADULT NORMAL Aortic valve Peak velocity, S 295 cm/s Mean velocity, S 215 cm/s VTI, S 60.8 cm Mean gradient, S 21 mm Hg Peak gradient, S 35 mm Hg Valve area, Vmax 1.21 cm^2 Valve area index, Vmax 0.57 cm^2/m^2 LEGEND: Mean values are shown as u=mean value. Asterisk (*) chong values outside specified normal range. Prepared and signed by Miguel Fuchs [id number]
== END 2016-11-26 18:02 ==
LOC: NEPC 06:03 → NEDA 08:31 → NEPFCDU 10:22
PROVIDERS: ADMIT Specialist; ATTEND Specialist
DX: R55 Syncope and collapse (principal); S01.111A Laceration without foreign body of right eyelid and periocular area, initial encounter; S01.21XA Laceration without foreign body of nose, initial encounter; S02.2XXA Fracture of nasal bones, initial encounter for closed fracture; I35.0 Nonrheumatic aortic (valve) stenosis; I25.10 Atherosclerotic heart disease of native coronary artery without angina pectoris; I12.9 Hypertensive chronic kidney disease with stage 1 through stage 4 chronic kidney disease, or unspecified chronic kidney disease; N17.9 Acute kidney failure, unspecified; N18.3 Chronic kidney disease, stage 3 (moderate); E86.0 Dehydration; K21.9 Gastro-esophageal reflux disease without esophagitis; K52.9 Noninfective gastroenteritis and colitis, unspecified; I73.9 Peripheral vascular disease, unspecified; I25.2 Old myocardial infarction; Z79.4 Long term (current) use of insulin; G47.30 Sleep apnea, unspecified; E11.22 Type 2 diabetes mellitus with diabetic chronic kidney disease; E78.5 Hyperlipidemia, unspecified; J44.9 Chronic obstructive pulmonary disease, unspecified; E78.00 Pure hypercholesterolemia, unspecified; K57.90 Diverticulosis of intestine, part unspecified, without perforation or abscess without bleeding; Z79.84 Long term (current) use of oral hypoglycemic drugs; Z86.711 Personal history of pulmonary embolism; Z86.73 Personal history of transient ischemic attack (TIA), and cerebral infarction without residual deficits; Z95.1 Presence of aortocoronary bypass graft; Z87.891 Personal history of nicotine dependence; Z96.652 Presence of left artificial knee joint
CPT/HCPCS: 12013; 70450; 70486; 71010; 74176; 80048; 80053; 82550; 82948; 83735; 84484; 85025; 90471; 90714; 93005; 93306; 93308; 93880; 96361; 96374; 97162; 99285; G0378; G8987; G8988; J1815; J2405; J7030